=== PATIENT | male | born 1955 | race Caucasian/White ===

== ENCOUNTER 2016-08-09 07:07 | Inpatient (IN) ==
[2016-08-09] MEDS ORDERED: 0.9 % Sodium Chloride 500 ML IVC ONE (07:18)
--- NOTE | 2016-08-09 07:28 | Emergency Department Note ---
Disposition Clinical Impression: Atrial fibrillation with rapid ventricular response, Elevation of cardiac enzymes Disposition: Admitted As Inpatient Time of Disposition: 09:01 Arrhythmia/Palpitations HPI - General Chief Complaint: ED Arrhythmia/Palpitations Stated Complaint: "I believe I'm in A-Fib" Time Seen by Provider: 08/09/16 07:11 Source: patient Limitations: no limitations Nursing Notes Reviewed: Yes Vital Signs Reviewed: Yes - History of Present Illness HPI Narrative: 60-year-old nontoxic-appearing male presents to emergency department for chief complaint of "I think I am in A. fib again". The patient states that at approximately 2000 hours yesterday evening, he noticed a sensation of palpitations and an irregular heart rate upon palpating his own radial artery. The patient states that he was diagnosed with atrial fibrillation approximately 2 years ago and converted while on a Cardizem drip. He states that he was placed on both extended release diltiazem and extended release coreg successfully. He states that to his knowledge, he has not reverted back into an irregular heartbeat since. She denies any overt chest pain, although alludes to a sensation of a brief "tightness" in his chest that is associated with these palpitations. He denies any nausea, diaphoresis, shortness of breath , vomiting, fevers. He states that he is currently being treated with oral doxycycline, prednisone, and a Qvar inhaler for an episode of acute bronchitis that has lasted for "about a month now". He denies any productive cough. He denies any other complaints at this time. Pt Subjective Complaint: palpitations, atrial fibrillation Onset (ago): hour(s) (yesterday evening at approximately 20:00) Duration: constant Arrhythmia History: atrial fibrillation, on anti-coagulants, prior evaluation Associated symptoms: Reports: cough. Denies: chest pain, shortness of breath, near-syncope, nausea, vomiting, diaphoresis Treatments prior to arrival: calcium channel solitario (cardizem) - Related Data Allergies Allergy/AdvReac Type Severity Reaction Status Date / Time No Known Allergies Allergy Verified 08/09/16 07:10 All systems ED: reviewed and negative except as stated. Constitutional: Denies: fever, chills, weakness, weight change Eyes: Denies: eye pain, eye discharge, vision change ENT ED: Denies: ear pain, throat pain, dental pain, hearing loss, epistaxis, congestion, dysphagia Cardiovascular: Reports: as per HPI, palpitations. Denies: chest pain, dyspnea on exertion, orthopnea, edema, syncope, paroxysmal nocturnal dyspnea Respiratory: Reports: as per HPI, cough. Denies: dyspnea, wheezes, hemoptysis, stridor, sputum production Gastrointestinal: Denies: abdominal pain, nausea, vomiting, diarrhea, constipation, hematemesis, melena, hematochezia Musculoskeletal: Denies: back pain, neck pain, arthralgia, myalgia Integumentary: Denies: rash, abrasion, lesions Neurological: Denies: headache, weakness, numbness, paresthesias, confusion, abnormal gait, vertigo Psychiatric: Denies: anxiety, depression, suicidal thoughts, homicidal thoughts , auditory hallucinations, visual hallucinations Endocrine: Denies: fatigue Hematological/Lymphatic: Denies: easy bleeding, easy bruising Allergic/Immunologic: Denies: facial swelling, urticaria Past Medical History - Past Medical History Attestation: Yes The following information was validated with the patient. Source: patient Medical history: Reports: atrial fibrillation, hyperlipidemia, hypertension, kidney stones, myocardial infarction Surgical history: Reports: angioplasty/stent, cholecystectomy Psychiatric history: Reports: no psych history - Social History Smoking Status: Never smoker Alcohol use: Reports: occasionally Drug use: Reports: none Physical Exam - General Limitations: no limitations General appearance: alert, in no apparent distress - Head Head exam: atraumatic, normocephalic, normal inspection - Eye Eye exam: Present: normal appearance, PERRL, EOMI. Absent: nystagmus - Expanded Eye Exam Pupils: Left: reactive - ENT ENT exam: mucous membranes moist - Neck Neck exam: Present: normal inspection, full ROM, trachea midline - Chest Chest inspection: Present: normal inspection, symmetric chest wall rise - Respiratory Respiratory exam: Present: normal lung sounds bilaterally. Absent: respiratory distress, wheezes, stridor, accessory muscle use, prolonged expiratory phase - Cardiovascular Cardiovascular exam: Present: tachycardia, irregular rhythm, normal heart sounds - Abdominal Exam Abdominal exam: Present: soft, Non-Tender, normal bowel sounds. Absent: tenderness, distention, guarding, rebound, rigidity - Extremities Exam Extremities exam: Present: normal inspection, full ROM. Absent: tenderness, pedal edema - Back Exam Back exam: Present: normal inspection, full ROM - Neurological Exam Neurological exam: Present: alert, oriented X3 - Expanded Neurological Exam Patient oriented to: Present: person, place, time Coma Scale Eye Opening: Spontaneous Coma Scale Motor Response: Obeys Commands Coma Scale Verbal Response: Oriented Coma Scale Total: 15 - Psychiatric Psychiatric exam: Present: normal affect, normal mood - Skin Skin exam: Present: warm, dry, intact, normal color. Absent: rash, cyanosis, diaphoresis, erythema, pallor, mottled Course Course Narrative: At this time, laboratory results as well as a chest x-ray are pending. We will start the patient on a Cardizem drip and reevaluate. 0750: I discussed this patient's case with Dr. Gomez. Dr. Gomez had a face-to- face evaluation with the patient and agrees with the above plan. 0850: I spoke with Dr. Mckeon of hospital service. Dr. Mckeon accepts patient for admission. Vital Signs Temperature 97.4 F L 08/09/16 07:08 Pulse Rate 90 08/09/16 07:08 Respiratory Rate 18 08/09/16 07:08 Blood Pressure 134/85 08/09/16 07:08 O2 Sat by Pulse Oximetry 96 08/09/16 07:08 Temperature 97.4 F L 08/09/16 07:08 Pulse Rate 90 08/09/16 09:03 Respiratory Rate 16 08/09/16 09:03 Blood Pressure 110/85 08/09/16 09:03 O2 Sat by Pulse Oximetry 97 08/09/16 09:03 Oxygen Delivery Oxygen Delivery Room Air Arrhythmia/Palpitations - Medical Records Medical records reviewed: Yes I reviewed the patient's medical records. Laboratory Last Values WBC 17.5 K/mcL (4.3-11.1) H 08/09/16 07:27 RBC 7.05 M/mcL (4.19-5.50) H 08/09/16 07:27 Hgb 19.7 g/dL (12.9-16.9) H 08/09/16 07:27 Hct 60.0 % (37.5-50.1) H 08/09/16 07:27 MCV 85.1 fL (83.0-100.0) 08/09/16 07:27 MCH 27.9 pg (28.0-33.3) L 08/09/16 07:27 MCHC 32.8 g/dL (31.6-35.5) 08/09/16 07: RDW 14.4 % (11.5-14.5) 08/09/16 07: Plt Count 242 K/mcL (140-400) 08/09/16 07: MPV 10.9 fL (9.4-12.4) 08/09/16 07: Immature Gran % 1.0 % (0-4) 08/09/16: Seg Neutrophils % 84.2 % 08/09/16 07: Lymphocytes % 9.5 % 08/09/16 07: Monocytes % 4.9 % 08/09/16: Eosinophils % 0.1 % 08/09/16: Basophils % 0.3 % 08/09/16: Neutrophils # 14.8 K/mcL (1.6-8.9) H 08/09/16 07: Lymphocytes # 1.7 K/mcL (0.6-4.6) 08/09/16 07: Monocytes # 0.9 K/mcL (0.0-1.3) 08/09/16 07: Eosinophils # 0.0 K/mcL (0.0-0.6) 08/09/16: Basophils # 0.1 K/mcL (0.0-0.2) 08/09/16 07: PT 11.6 Seconds (9.4-12.1) 08/09/16 08:11 INR 1.1 08/09/16 08:11 APTT 22.9 Seconds (26.0-36.0) L 08/09/16 08:11 Sodium 135 mEq/L (136-145) L 08/09/16 07: Potassium 4.3 mEq/L (3.5-4.5) 08/09/16 07: Chloride 101 mEq/L (98-109) 08/09/16 07: Carbon Dioxide 22 mEq/L (19-29) 08/09/16: BUN 21 mg/dL (8-26) 08/09/16: Creatinine 1.12 mg/dL (0.72-1.25) 08/09/16: Est GFR ( Amer) > 60 (> 60) 08/09/16 07:27 Est GFR (Non-Af Amer) > 60 (> 60) 08/09/16 07:27 BUN/Creatinine Ratio 19 (6-26) 08/09/16 07:27 Glucose 282 mg/dL (70-99) H 08/09/16 07:27 Calculated Osmolality 293 (280-300) 08/09/16 07:27 Calcium 9.5 mg/dL (8.6-10.8) 08/09/16 07:27 Troponin I 0.06 ng/mL (0-0.03) H* 08/09/16 07:27 - Lab Data Lab results reviewed: Yes I reviewed the patient's lab results. Lab results narrative: Laboratory Last Values WBC 17.5 K/mcL (4.3-11.1) H 08/09/16 07:27 RBC 7.05 M/mcL (4.19-5.50) H 08/09/16 07:27 Hgb 19.7 g/dL (12.9-16.9) H 08/09/16 07:27 Hct 60.0 % (37.5-50.1) H 08/09/16 07:27 MCV 85.1 fL (83.0-100.0) 08/09/16 07:27 MCH 27.9 pg (28.0-33.3) L 08/09/16 07:27 MCHC 32.8 g/dL (31.6-35.5) 08/09/16 07:27 RDW 14.4 % (11.5-14.5) 08/09/16 07:27 Plt Count 242 K/mcL (140-400) 08/09/16 07:27 MPV 10.9 fL (9.4-12.4) 08/09/16 07:27 Immature Gran % 1.0 % (0-4) 08/09/16 07:27 Seg Neutrophils % 84.2 % 08/09/16 07:27 Lymphocytes % 9.5 % 08/09/16 07:27 Monocytes % 4.9 % 08/09/16 07:27 Eosinophils % 0.1 % 08/09/16 07:27 Basophils % 0.3 % 08/09/16 07:27 Neutrophils # 14.8 K/mcL (1.6-8.9) H 08/09/16 07:27 Lymphocytes # 1.7 K/mcL (0.6-4.6) 08/09/16 07:27 Monocytes # 0.9 K/mcL (0.0-1.3) 08/09/16 07:27 Eosinophils # 0.0 K/mcL (0.0-0.6) 08/09/16 07:27 Basophils # 0.1 K/mcL (0.0-0.2) 08/09/16 07:27 PT 11.6 Seconds (9.4-12.1) 08/09/16 08:11 INR 1.1 08/09/16 08:11 APTT 22.9 Seconds (26.0-36.0) L 08/09/16 08:11 Sodium 135 mEq/L (136-145) L 08/09/16 07:27 Potassium 4.3 mEq/L (3.5-4.5) 08/09/16 07:27 Chloride 101 mEq/L (98-109) 08/09/16 07:27 Carbon Dioxide 22 mEq/L (19-29) 08/09/16 07:27 BUN 21 mg/dL (8-26) 08/09/16 07:27 Creatinine 1.12 mg/dL (0.72-1.25) 08/09/16 07:27 Est GFR ( Amer) > 60 (> 60) 08/09/16 07:27 Est GFR (Non-Af Amer) > 60 (> 60) 08/09/16 07:27 BUN/Creatinine Ratio 19 (6-26) 08/09/16 07:27 Glucose 282 mg/dL (70-99) H 08/09/16 07:27 Calculated Osmolality 293 (280-300) 08/09/16 07:27 Calcium 9.5 mg/dL (8.6-10.8) 08/09/16 07:27 Troponin I 0.06 ng/mL (0-0.03) H* 08/09/16 07:27 Result diagrams: 08/09/16 07:27 08/09/16 07:27 Lab Results 08/09/16 08/09/16 08/09/16 Range/Units 07:27 07:27 07:27 WBC 17.5 H (4.3-11.1) K/mcL RBC 7.05 H (4.19-5.50) M/mcL Hgb 19.7 H (12.9-16.9) g/dL Hct 60.0 H (37.5-50.1) % MCV 85.1 (83.0-100.0) fL MCH 27.9 L (28.0-33.3) pg MCHC 32.8 (31.6-35.5) g/dL RDW 14.4 (11.5-14.5) % Plt Count 242 (140-400) K/mcL MPV 10.9 (9.4-12.4) fL Immature Gran % 1.0 (0-4) % Seg Neutrophils % 84.2 % Lymphocytes % 9.5 % Monocytes % 4.9 % Eosinophils % 0.1 % Basophils % 0.3 % Neutrophils # 14.8 H (1.6-8.9) K/mcL Lymphocytes # 1.7 (0.6-4.6) K/mcL Monocytes # 0.9 (0.0-1.3) K/mcL Eosinophils # 0.0 (0.0-0.6) K/mcL Basophils # 0.1 (0.0-0.2) K/mcL PT (9.4-12.1) Seconds INR APTT (26.0-36.0) Seconds Sodium 135 L (136-145) mEq/L Potassium 4.3 (3.5-4.5) mEq/L Chloride 101 (98-109) mEq/L Carbon Dioxide 22 (19-29) mEq/L BUN 21 (8-26) mg/dL Creatinine 1.12 (0.72-1.25) mg/dL Est GFR ( Amer) > 60 (> 60) Est GFR (Non-Af Amer) > 60 (> 60) BUN/Creatinine Ratio 19 (6-26) Glucose 282 H (70-99) mg/dL Calculated Osmolality 293 (280-300) Calcium 9.5 (8.6-10.8) mg/dL Troponin I 0.06 H* (0-0.03) ng/mL 08/09/16 Range/Units 08:11 WBC (4.3-11.1) K/mcL RBC (4.19-5.50) M/mcL Hgb (12.9-16.9) g/dL Hct (37.5-50.1) % MCV (83.0-100.0) fL MCH (28.0-33.3) pg MCHC (31.6-35.5) g/dL RDW (11.5-14.5) % Plt Count (140-400) K/mcL MPV (9.4-12.4) fL Immature Gran % (0-4) % Seg Neutrophils % % Lymphocytes % % Monocytes % % Eosinophils % % Basophils % % Neutrophils # (1.6-8.9) K/mcL Lymphocytes # (0.6-4.6) K/mcL Monocytes # (0.0-1.3) K/mcL Eosinophils # (0.0-0.6) K/mcL Basophils # (0.0-0.2) K/mcL PT 11.6 (9.4-12.1) Seconds INR 1.1 APTT 22.9 L (26.0-36.0) Seconds Sodium (136-145) mEq/L Potassium (3.5-4.5) mEq/L Chloride (98-109) mEq/L Carbon Dioxide (19-29) mEq/L BUN (8-26) mg/dL Creatinine (0.72-1.25) mg/dL Est GFR ( Amer) (> 60) Est GFR (Non-Af Amer) (> 60) BUN/Creatinine Ratio (6-26) Glucose (70-99) mg/dL Calculated Osmolality (280-300) Calcium (8.6-10.8) mg/dL Troponin I (0-0.03) ng/mL - Radiology Data Radiology results reviewed: Yes I reviewed the patient's radiology results. Chest X-Ray 08/09/16 07:19 IMPRESSION: No acute cardiopulmonary disease. D/ / 08/09/2016 08:45:00 Jennifer Roland MD / [facility] Interpreting Provider: Jennifer Roland MD - EKG Data EKG attestation: Yes I reviewed and interpreted this EKG. EKG results narrative: EKG reviewed by Dr. Gomez. EKG shows atrial fibrillation with rapid ventricular response at a rate of 150 bpm. No STEMI Rate: tachycardia Rhythm: A.Fib (With rapid ventricular rate) Attestation Statement - Attestation Attestation: For this encounter, I have reviewed the [employer]ER or PA documentation, treatment plan, and medical decision making; and I have had face to face time with this patient. 60-year-old who had a history of A. fib who thinks he is back in A. fib again. Physical examination heart disease or irregularly irregular with a rapid ventricular response. Patient will be started on Cardizem and admitted to the hospital.
[2016-08-09 07:36] LABS: Basophils # 0.1 K/mcL (0.0-0.2); Basophils % 0.3 %; Eosinophils % 0.1 %; Hemoglobin 19.7 g/dL (12.9-16.9); Lymphocytes # 1.7 K/mcL (0.6-4.6); Lymphocytes % 9.5 %; Mean Corpuscular HGB Conc 32.8 g/dL (31.6-35.5); Mean Corpuscular Hemoglobin 27.9 pg (28.0-33.3); Mean Corpuscular Volume 85.1 fL (83.0-100.0); Mean Platelet Volume 10.9 fL (9.4-12.4); Monocytes # 0.9 K/mcL (0.0-1.3); Monocytes % 4.9 %; Neutrophils # 14.8 K/mcL (1.6-8.9); Platelet Count 242 K/mcL (140-400); Red Blood Count 7.05 M/mcL (4.19-5.50); Red Cell Distribution Width 14.4 % (11.5-14.5); Segmented Neutrophils % 84.2 %
[2016-08-09 07:47] LABS: BUN/Creatinine Ratio 19 (6-26); Blood Urea Nitrogen 21 mg/dL (8-26); Calcium 9.5 mg/dL (8.6-10.8); Carbon Dioxide 22 mEq/L (19-29); Chloride 101 mEq/L (98-109); Glucose 282 mg/dL (70-99); Osmolality,Calculated 293 (280-300); Potassium 4.3 mEq/L (3.5-4.5); Sodium 135 mEq/L (136-145); eGFR For African Americans > 60 (> 60); eGFR For Non-African Americans > 60 (> 60)
[2016-08-09 08:21] LABS: INR 1.1; Prothrombin Time 11.6 Seconds (9.4-12.1)
[2016-08-09] MEDS ORDERED: Aspirin 81 MG TAB.CHEW PO ONE (08:21)
[2016-08-09 08:24] LABS: Activated Partial Thrombo Time 22.9 Seconds (26.0-36.0)
[2016-08-09] MEDS ORDERED: 0.9 % Sodium Chloride 500 ML ONE (10:31)
[2016-08-09] MEDS ORDERED: Naloxone 0.4 MG/ML INJ IVP PRN (10:35)
[2016-08-09] MEDS ORDERED: Acetaminophen 325 MG TABLET PO PRN (10:35)
[2016-08-09] MEDS ORDERED: MOM Conc 10 ML UD.LIQ PO PRN (10:35)
[2016-08-09] MEDS ORDERED: Ondansetron 4 MG/2 ML VIAL IVP PRN (10:35)
[2016-08-09] MEDS ORDERED: 0.9 % Sodium Chloride 1,000 ML IVC SCH (10:45)
--- NOTE | 2016-08-09 10:47 | Internal Med History&Physical ---
<Cyndi Corrales - Last Filed: 08/09/16 11:23> Date of Encounter: 08/09/16 Time of Encounter: 09:15 Assessment and Plan (1) Atrial fibrillation with rapid ventricular response Current visit: Yes Status: Acute Pt was playing with his dog last night at about 20:00 and lightly jogged back into his house and felt palpitations and 2/10 intermittent, non-radiating L chest tightness that lasted less than a minute. He denies SOB, n/v, or diaphoresis. He got up early this a.m. still having palpitations and took his Cardizem, hoping to convert, but did not. Initial EKG in ED was a-fib RVR, rate 150. Cardizem bolus and gtt slowed his rate here, however he has not converted. He currently denies feeling palpitations, SOB, or nausea. States that he feels fine and that last time he had this, it took him about 12 hours to convert. Pt admits being complaint to medications, RVR could be secondary to use of inhaler for the past week (pt was prescribed albuterol tid, qvar bid and prednisone for asthma). r/o ACS given briefly CP before palpitations and mildly elevated first troponin at 0.06. Continue Cardizem gtt check echocardiogram Continuous cardiac monitoring, serial troponins and if trending up, will consult cardiology. (2) Elevation of cardiac enzymes Current visit: Yes Status: Acute Initial troponin 0.06 at 0730. Denies cp, pressure, SOB. Plan as above Serial troponins (3) Hyperlipemia Current visit: Yes Status: Acute Lipid panel done in 06/19, all wnl. Continue home medication. Qualifiers: Hyperlipidemia type: unspecified Qualified Code(s): E78.5 - Hyperlipidemia , unspecified (4) Asthma Current visit: Yes Status: Acute Pt has been being treated for cough, congestion, and wheezing for the last month. He is currently taking doxycycline and has been on it for the last 6 days with no missed doses. He is also taking a taped dose of prednisone, Qvar inhaler, and using an albuterol inhaler about 4x/day. His chest xray is negative for any cardiopulmonary disease. He states that he gets something like this at least once a year and knows that he need steroids to get over it. His lungs are clear ant and post and his room air sat was 97% Xopenex nebulizers prn Continue prednisone taper Qualifiers: Asthma severity: mild intermittent Asthma complication type: with acute exacerbation Qualified Code(s): J45.21 - Mild intermittent asthma with (acute ) exacerbation Internal Medicine - H&P: HPI Chief complaint: A-fib Admitted From: Home Plans for Post Hospital Care: Home History of present illness: Mr. Blackmon is a 60 year old male with prior history of a-fib, asthma, and hyperlipidemia who presented to the ER last night feeling as if he was in a-fib again. Pt had been playing with his dog and lightly jogged back to the house when he first noticed it. He also had 2/10 intermittent mid-sternal, non- radiating chest tightness that lasted less than a minute. He denies any SOB, n/v , or diaphoresis. He woke up early this a.m and took his Diltiazem, hoping that he would convert. When he didn't he went to the ED. His initial EKG showed a- fib RVR with a rate of 150. Pt is currently on a Cardizem gtt which has slowed his rate into the 80s, however he has not converted. His vitals have remained stable, during exam heart rate 77 and BP 102/70. He is also being treated with Qvar, Prednisone, Albuterol, and Doxycycline for an acute asthma exacerbation that began about a month ago. Pt states that he is feeling better, but is still using his albuterol inhaler "no more than 4 times per day". He denies fever or productive cough, but reports intermittent wheezing and rhinorrhea. Past Med Surg Social Fam HX - Past Medical History Medical history: atrial fibrillation, cancer (Malignant melanoma 2014), hyperlipidemia, hypertension, kidney stones, myocardial infarction Psychiatric history: no psych history - Past Surgical History Surgical History: angioplasty/stent, cholecystectomy - Social History Smoking Status: Never smoker Alcohol use: occasionally Drug use: none Internal Medicine - H&P: Meds Albuterol Sulfate [Albuterol Inhaler] 2 puff IH Q4HR PRN 08/09/16 [History] Aspirin [Lo-Dose Aspirin EC] 81 mg PO DAILY 08/09/16 [History] Atorvastatin Calcium [Lipitor] 20 mg PO DAILY 08/09/16 [History] Beclomethasone Diprop 80mcg [Qvar 80 mcg] 1 puff IH BID 08/09/16 [History] Carvedilol Phosphate [Coreg Cr] 10 mg PO DAILY 08/09/16 [History] Clopidogrel [Plavix] 75 mg PO DAILY 08/09/16 [History] Diltiazem CD (24hr) [Cardizem CD] 120 mg PO DAILY 08/09/16 [History] Doxycycline 100 mg PO BID 08/09/16 [History] Fish Oil/Borage/Flax/Om3,6,9#1 [[place]wood 3-6-9 1,200 mg Softgel] 1,200 mg PO DAILY 08/09/16 [History] Lisinopril [Zestril] 2.5 mg PO DAILY 08/09/16 [History] PredniSONE 10 mg PO DAILY 08/09/16 [History] Allergies No Known Allergies Allergy (Verified 08/09/16 07:10) All Systems PM: A 10-system review of systems was performed and is negative for pertinent findings except as documented above in the HPI. - Constitutional Vitals: Temp Pulse Resp BP Pulse Ox 97.4 F L 90 16 110/85 97 08/09/16 07:08 08/09/16 09:03 08/09/16 09:03 08/09/16 09:03 08/09/16 09:03 Internal Med - H&P Results - Labs CBC & Chem 7: 08/09/16 07:27 08/09/16 07:27 - EKG Data Rate: normal - EKG Data EKG comments: 08/09/16 10:51 A-fib RVR , rate 150 <Cindy Ralph E - Last Filed: 08/09/16 13:21> Date of Encounter: 08/09/16 Internal Medicine - H&P: HPI History of present illness: Mr. Blackmon is a 60 year old male All Systems PM: A 10-system review of systems was performed and is negative for pertinent findings except as documented above in the HPI. - Constitutional Vitals: Temp Pulse Resp BP Pulse Ox 98.1 F 73 16 112/82 97 08/09/16 11:29 08/09/16 11:29 08/09/16 11:57 08/09/16 11:29 08/09/16 11:57 Internal Med - H&P Results - Labs CBC & Chem 7: 08/09/16 07:27 08/09/16 07:27 - Attending Attestation I examined this patient and reviewed laboratory, imaging and all diagnostic data. My medical decision-making was reviewed with SG Corrales. I agree with the documented findings, disposition and treatment plan as described above. 60- year-old male with past medical history of atrial fibrillation and takes diltiazem and coreg at home. He presents after developing palpitations yesterday night. Patient reports for the past week he has been using albuterol tid for an episode of asthma exacerbation. EKG show atrial fibrillation with rapid ventricular response heart rate 150. Patient received IV bolus Cardizem and then was placed in continuous Cardizem drip. His thyroid is currently in the 70s. He is asymptomatic. Examination shows no LEedema, chest CTAB and heart irregular rhythm. troponin was 0.06. CXR showed no acute process. a/p Atrial fibrillation with rapid ventricular response. Continue Cardizem drip. Continue home dose of Coreg. RVR could be secondary to his recent use of albuterol versus ACS given mild elevation of troponin. Follow-up serial troponins and if keeps trending up I will consult cardiology. Check echocardiogram. asthma. xopenex q6hr.
[2016-08-09] MEDS: Levalbuterol Neb 0.63 MG/3 ML IH SCH ×3 (11:56→21:23)
--- NOTE | 2016-08-09 15:00 | ECHO - Doppler Report ---
Echocardiogram Name: Darrell Blackmon Date of Study: 08/09/2016 Date: 1955 Ht: 68.0 in Medical Record#: [id number] Age: 60 Wt: 208.0 lb Gender: Male BSA: 2.08 Order #: [id number] Location: [facility] Room #: [id number] Reading Physician: Gustavo Landis DO, FACC, HALIE, WOLFGANG Inside Sales: Maggie Llanes, RVT, RDCS Ordering Physician: Cyndi Corrales CNP Primary Physician: Jo Scherer CNP Indications: ATRIAL FIBRILLATION Impressions: Technically sub-optimal due to poor echocardiographic windows. LVEF 55-60%. Normal LV chamber size. Not all LV segments were well visualized, but overall function appears normal. Mild concentric left ventricular hypertrophy. Indeterminate diastolic function. Atypical septal motion consistent with bundle branch block. Normal right ventricular structure and function. No evidence of pulmonary hypertension identified. RVSP was not well obtained. No obvious significant valvular dysfunction. Findings: Study Quality * Technically sub-optimal due to poor echocardiographic windows. ECG Findings * Atrial fibrillation with a bundle branch block. Left Ventricle * LVEF 55-60%. * Normal LV chamber size. Not all LV segments were well visualized, but overall function appears normal. * Mild concentric left ventricular hypertrophy. * Atypical septal motion consistent with bundle branch block. * Indeterminate diastolic function. Right Ventricle * Normal right ventricular structure and function. Left Atrium * Mildly dilated left atrium. Right Atrium * Normal right atrial size. Interatrial Septum * Interatrial septum not well evaluated. Aortic Valve * Aortic valve not well visualized. * No aortic regurgitation. * No aortic stenosis. Mitral Valve * Normal mitral valve structure and function. * No mitral regurgitation. * No mitral stenosis. Tricuspid Valve * Normal tricuspid valve structure and function. * Trace tricuspid regurgitation. * No evidence of pulmonary hypertension identified. RVSP was not well obtained. Pulmonic Valve * Pulmonic valve not well visualized. Aorta * Normally sized aortic root. Pericardium * The pericardium appears normal. IVC * The IVC is not well evaluated. Pulmonary Artery * Pulmonary artery not well visualized. History Hypertension Hypercholesteremia Family History of CAD History of CAD/PTCA Myocardial Infarction 2015 a Previous Echo was performed. Measurements: BP: 112/ 82 2D Normal Values IVSd: 1.20 cm 0.6 - 1.0 cm LVIDd: 4.10 cm 3.7 - 5.6 cm LVPWd: 1.20 cm 0.6 - 1.1 cm LVIDs: 2.20 cm 1.5 - 3.6 cm AO: 2.70 cm < 4.0 cm LA: 3.40 cm 2.0 - 4.0cm %FS: 46.30 cm >25 % LA volume: 35 Mitral Valve Peak E:.96 m/sec Tricuspid Valve TV Regurg Peak Grad: 11.00mmHg TV Regurg Peak Tanmay: 1.68m/sec Updated by Gustavo Landis DO, DONNA, HALIE, WOLFGANG on 08/09/2016 2:56:17 PM electronically signed on 08/09/2016 2:56:54 PM with status of [employer] [place]: 1=Normal, 2=Hypokinesis, 3=Akinesis, 4=Dyskinesis, 5=Aneurysmal, 6=Hyperkinetic, X=Not Visualized (Blank)=Missing
[2016-08-10 01:02] LABS: Basophils % 0.3 %; Eosinophils # 0.1 K/mcL (0.0-0.6); Eosinophils % 0.4 %; Hematocrit 52.6 % (37.5-50.1); Immature Granulocytes % 0.6 % (0-4); Immature Platelets 5.2 % (1.1-6.1); Lymphocytes % 14.2 %; Mean Corpuscular HGB Conc 33.3 g/dL (31.6-35.5); Mean Corpuscular Hemoglobin 28.2 pg (28.0-33.3); Mean Corpuscular Volume 84.8 fL (83.0-100.0); Mean Platelet Volume 10.8 fL (9.4-12.4); Monocytes # 1.1 K/mcL (0.0-1.3); Neutrophils # 10.8 K/mcL (1.6-8.9); Platelet Count 191 K/mcL (140-400); Red Cell Distribution Width 13.3 % (11.5-14.5); Segmented Neutrophils % 76.5 %
[2016-08-10 01:05] LABS: Hemoglobin 17.5 g/dL (12.9-16.9)
[2016-08-10 01:12] LABS: BUN/Creatinine Ratio 23 (6-26); Blood Urea Nitrogen 23 mg/dL (8-26); Calcium 8.3 mg/dL (8.6-10.8); Carbon Dioxide 23 mEq/L (19-29); Chloride 103 mEq/L (98-109); Glucose 202 mg/dL (70-99); Osmolality,Calculated 289 (280-300); Potassium 4.1 mEq/L (3.5-4.5); Sodium 135 mEq/L (136-145); eGFR For African Americans > 60 (> 60); eGFR For Non-African Americans > 60 (> 60)
[2016-08-10 01:35] LABS: Thyroid Stimulating Hormone 0.483 mcIU/mL (0.350-4.840)
[2016-08-10] MEDS: Levalbuterol Neb 0.63 MG/3 ML IH SCH ×4 (04:31→21:39)
--- NOTE | 2016-08-10 07:28 | Internal Med Progress Note ---
Date of Encounter: 08/10/16 Time of Encounter: 07:25 - Assessment and plan (1) Atrial fibrillation with rapid ventricular response Current Visit: Yes Status: Acute Assessment and plan: Admitted with Afib with RVR: - was on cardizem drip and noted that presently his HR is 90-96/m with Blood pressure 111/87. - Had ongoing respiratory tract infection and was on Oral doxy and PO pred ( 10 mg) and Albuterol inhalers. - ongoing respiratory symptoms for more than 4 weeks. - denies fever, chest pain, nausea or vomiting. - noted Elevated WBC ( trending down) with normal renal function. plan: - Oral cardizem 120 mg SR and taper cardizem drip - Need snf A/C as his [id number] score is 2. may get benefit from NOAC. - will ask social media strategist to find a cost ( insurance) - will treat underlying lung issue more aggressively as that can be precipitating factor for Afib. - will start IV steroids( Solumedrol 40 mg q8h), IV antibiotics ( IV Zosyn 3.375 q8H) and continue Zoponex. - case discussed with Dr steel (cardilogy) - updated family all above. (2) Elevation of cardiac enzymes Current Visit: Yes Status: Acute Assessment and plan: likely demand ischimia from RVR (3) Asthma Current Visit: Yes Status: Acute Assessment and plan: will treat more aggressively Qualifiers: Asthma severity: mild intermittent Asthma complication type: with acute exacerbation Qualified Code(s): J45.21 - Mild intermittent asthma with (acute ) exacerbation - Subjective Interval history: seen and examined. admitted with Afib along with RVR still has cough and occasional SOB denies chest pain, nausea, vomiting or diarrhea. - Constitutional Vitals: Temp Pulse Resp BP Pulse Ox 98.2 F 85 16 111/87 94 L 08/10/16 05:00 08/10/16 05:00 08/10/16 05:00 08/10/16 05:00 08/10/16 05:00 - Head Head exam: Present: atraumatic, normocephalic - Eye Eye exam: Present: PERRL, conjuntiva pink, sclera anicteric Pupils: Present: PERRL - Neck Neck exam general surgery: Present: supple, trachea midline. Absent: lymphadenopathy - Respiratory Respiratory exam: Present: CTAB. Absent: accessory muscle use, rales, rhonchi, wheezes - Cardiovascular Cardiovascular exam: Present: RRR, +S1, +S2. Absent: diastolic murmur, gallop, rubs, systolic murmur - GI/Abdominal GI/Abdominal exam: Present: normal bowel sounds, soft, no peritoneal signs. Absent: distended, tenderness - Extremities Exam Extremities exam: Present: warm, radial pulses palpable and symetrical. Absent : calf tenderness, cyanotic, pedal edema - Neurological Exam Neurological exam: Present: CN II-XII intact, oriented X3, no focal deficits. Absent: pronater drift, facial droop, speech deficit - Skin Skin exam: Present: dry, intact Internal Medicine: Result - Labs CBC & Chem 7: 08/10/16 00:42 08/10/16 00:48 Labs: Short CBC 08/10/16 Range/Units 00:42 WBC 14.1 H (4.3-11.1) K/mcL Hgb 17.5 H D (12.9-16.9) g/dL Hct 52.6 H (37.5-50.1) % Plt Count 191 (140-400) K/mcL Neutrophils # 10.8 H (1.6-8.9) K/mcL BMP 08/10/16 00:48 Sodium 135 L Potassium 4.1 Chloride 103 Carbon Dioxide 23 BUN 23 Creatinine 0.98 Glucose 202 H Calcium 8.3 L Cardiac Enzymes 08/09/16 08/10/16 Range/Units 19:21 00:48 Troponin I 0.06 H* 0.05 H* (0-0.03) ng/mL - ABG Interpretation ABG results: PT/INR, D-dimer PT 11.6 Seconds (9.4-12.1) 08/09/16 08:11 Consult Discharge Plan - Plan Referrals: Jo Scherer, PUBLIC POLICY ANALYST [Primary Care Provider] -
[2016-08-10] MEDS ORDERED: Piperacillin/Tazobactam 3.375 GM in D5% in Water (Mini-Bag+) 100 ML IVPB SCH (08:00)
--- NOTE | 2016-08-10 08:24 | Cardiology Consult Note ---
Date of Encounter: 08/10/16 Time of Encounter: 08:30 Assessment and Plan (1) Atrial fibrillation with rapid ventricular response Current Visit: Yes Status: Acute Per Cardiology: Previous one time occurrence paroxysmal atrial fibrillation about 2 years ago. Previous management with Cardizem CD 120 mg by mouth daily and taking baby aspirin. Presents with recurrent A. fib with RVR in setting of persistent cough and asthma exacerbation. Suspect also contributing factor increased albuterol usage. Remains A. fib with heart rate fluctuating 90s to 130s. On Cardizem drip at 5 mg per hour. Currently on Cardizem CD 120 mg and Coreg 3.125 mg by mouth twice a day. Systolic blood pressure 90s to 110s. Will discontinue lisinopril. We'll switch to Cardizem 60 mg by mouth every 6 hours and titrate as blood pressure allows. Will attempt to wean off IV Cardizem drip. TSH within normal limits. Echo showed EF preserved 55-60%, no significant valvular dysfunction. Suspect may be difficult to rate control and to underlying resp status improved. Also albuterol nebulizers and now on Xopenex. Regarding long-term anticoagulation, [id number] = 2 (HTN, Vascular). Has been started on Xarelto 20 mg by mouth daily by primary service. Will discontinue Plavix-- last stenting in 2006. Remains on baby aspirin. (2) Asthma Current Visit: Yes Status: Acute Per Cardiology: Pt had been being treated for cough, congestion, and wheezing for the last month. He was currently taking doxycycline and has been on it for the last 6 days with no missed doses. He was also taking a taped dose of prednisone, Qvar inhaler, and was using an albuterol inhaler about 4x/day. Now on steroids, Xopenex, and antibiotics. Management per primary service. Qualifiers: Asthma severity: mild intermittent Asthma complication type: with acute exacerbation Qualified Code(s): J45.21 - Mild intermittent asthma with (acute ) exacerbation (3) Elevation of cardiac enzymes Current Visit: Yes Status: Acute Per Cardiology: Trops 0.06 x 3 and then 0.05. Denies any CP. Hx CAD with 3 BMS 2006 at [facility]. Suspect type II demand ischemia in setting of afib RVR, ashtma/URI. Echo showed EF preserved 55-60%. Can evaluate further ischemic eval if deemed appropriate in outpatient setting once improved from acute resp issues. Discussion w patient/family: The assessment and plan as outlined above was discussed with the patient who expressed understanding and agreement. All questions were answered. Thank you for involving us in the care of your patient. Please call with any questions. History of Present Illness Consult date: 08/10/16 Requesting physician: Kaleb Peralta Consult reason: Afib with RVR Chief complaint: Afib RVR History of present illness: Mr. Blackmon is a 60 year old male with a relevant past medical history of hypertension, hyperlipidemia, asthma, paroxysmal atrial fibrillation, and CAD. Patient reports previous stents 3 (BMS) 2006 at [facility]. Reports past history of one time occurrence of atrial fibrillation about 2 years ago being managed with Cardizem CD 120 mg by mouth daily and on baby aspirin. Last seen by Dr. Mark Nichole June 2016. Reports past 3-4 weeks experiencing persistent mainly nonproductive cough with asthma exacerbation. He reports a few occasions reducing clear to whitish colored phlegm. Denies any fever, chills, nausea, vomiting, diarrhea. Reports he notices heart rate irregular and running fast this past Wednesday and did not resolve so he came to the hospital on Wednesday. Denies any active bleeding or blood loss. Denies any syncopal events or falls. He denies any chest pain. He denies any known history of sleep apnea, does report snoring. Past Med Surg Social Fam HX - Past Medical History Attestation: Yes The following information was validated with the patient. Source: patient, old records reviewed Medical history: atrial fibrillation, cancer, hyperlipidemia, hypertension, kidney stones, myocardial infarction Psychiatric history: no psych history - Past Surgical History Surgical History: angioplasty/stent, cholecystectomy - Social History Smoking Status: Never smoker Alcohol use: occasionally Drug use: none - Family History Father Living Status: Still Living Age at : 80 Hx Family Cardiac Disorders: Yes (ACS, CABG) Medications and Allergies Albuterol Sulfate [Albuterol Inhaler] 2 puff IH Q4HR PRN 08/09/16 [History] Aspirin [Lo-Dose Aspirin EC] 81 mg PO DAILY 08/09/16 [History] Atorvastatin Calcium [Lipitor] 20 mg PO DAILY 08/09/16 [History] Beclomethasone Diprop 80mcg [Qvar 80 mcg] 1 puff IH BID 08/09/16 [History] Carvedilol Phosphate [Coreg Cr] 10 mg PO DAILY 08/09/16 [History] Clopidogrel [Plavix] 75 mg PO DAILY 08/09/16 [History] Diltiazem CD (24hr) [Cardizem CD] 120 mg PO DAILY 08/09/16 [History] Doxycycline 100 mg PO BID 08/09/16 [History] Fish Oil/Borage/Flax/Om3,6,9#1 [[place] 3-6-9 1,200 mg Softgel] 1,200 mg PO DAILY 08/09/16 [History] Lisinopril [Zestril] 2.5 mg PO DAILY 08/09/16 [History] PredniSONE 10 mg PO DAILY 08/09/16 [History] Allergies No Known Allergies Allergy (Verified 08/09/16 07:10) All Systems Review: A 10-system review of systems was performed and is negative for pertinent findings except as documented above in the HPI. - Constitutional Constitutional: snoring - Cardiovascular Cardiovascular: as per HPI, irregular heart rhythm, palpitations, rapid heart rate - Respiratory Respiratory: cough Physical Examination Vital Signs, Last 4 Hours Temp Pulse Resp BP Pulse Ox 08/10/16 07:00 97.4 F L 83 16 112/85 97 08/10/16 05:00 98.2 F 85 16 111/87 94 L 08/10/16 04:31 16 98 General: Conversant, No Apparent Distress HEENT: Atraumatic, Normocephaly, Mucus Membranes Moist Neck: No JVD, Normal carotid pulses Cardiac: No Murmur, Other (Irregular irregular) Lungs: Normal Breath Sounds, No Wheeze, Rales, Rhonchi, Other (Dry nonproductive cough noted) Neuro: Alert and responsive, No focal deficits noted Abdomen: Soft, Non-Tender Skin: No rashes noted on visualized skin Musculoskeletal: No Chest Wall Tenderness Extremities: No Edema, Normal Pulses Results 08/10/16 00:42 08/10/16 00:48 Lab Results Laboratory Tests 08/09/16 08/09/16 08/09/16 07:27 07:27 08:11 WBC 17.5 H INR 1.1 Troponin I 0.06 H* TSH 08/09/16 08/09/16 08/10/16 13:42 19:21 00:42 WBC 14.1 H INR Troponin I 0.06 H* 0.06 H* TSH 08/10/16 08/10/16 00:48 00:48 WBC INR Troponin I 0.05 H* TSH 0.483 ITS Impressions Chest X-Ray 08/09/16 07:19 IMPRESSION: No acute cardiopulmonary disease. D/ / 08/09/2016 08:45:00 Jennifer Roland MD / [facility] Interpreting Provider: Jennifer Roland MD Active Medications Acetaminophen (Tylenol) 650 mg PO Q6HR PRN PRN Reason: Mild Pain (1-3) Stop: 02/08/17 10:36 Aspirin (Aspirin Ec) 81 mg PO DAILY [facility] Stop: 02/09/17 09:01 Atorvastatin Calcium (Lipitor) 20 mg PO DAILY [facility] Stop: 02/09/17 09:01 Carvedilol (Coreg) 3.125 mg PO BID [facility] Stop: 02/09/17 09:01 Clopidogrel Bisulfate (Plavix) 75 mg PO DAILY [facility] Stop: 02/09/17 09:01 Diltiazem HCl (Cardizem Cd) 120 mg PO DAILY [facility] Stop: 02/09/17 09:01 Docusate Sodium (Colace) 100 mg PO BID PRN PRN Reason: Constipation Stop: 02/08/17 10:36 Diltiazem HCl 125 mg/ Dextrose 125 mls @ 5 mls/hr IVC .Q24H [facility] PRN Reason: 5 MG/HR Stop: 02/08/17 07:31 Last Admin: 08/10/16 01:10 Dose: 5 mg/hr, 5 mls/hr Sodium Chloride (0.9 % Sodium Chloride) 1,000 mls @ 0 mls/hr IVC .Q0M [facility] PRN Reason: KVO Stop: 02/08/17 10:46 Last Admin: 08/09/16 22:48 Dose: 20 mls/hr Piperacillin Sod/Tazobactam (Sod 3.375 gm/ Dextrose) 100 mls @ 25 mls/hr IVPB Q8HR [facility] PRN Reason: Protocol Stop: 02/09/17 08:01 Levalbuterol HCl (Xopenex) 0.63 mg IH [id number] [facility] Stop: 02/08/17 11:46 Last Admin: 08/10/16 04:31 Dose: 0.63 mg Lisinopril (Zestril) 2.5 mg PO DAILY [facility]A PRN Reason: Protocol Stop: 02/09/17 09:01 Magnesium Hydroxide (Milk Of Magnesia Conc) 10 ml PO DAILY PRN PRN Reason: Indigestion Stop: 02/08/17 10:36 Methylprednisolone (Solu-Medrol) 40 mg IVP Q8HR [facility] Stop: 02/09/17 08:01 Naloxone HCl (Narcan) 0.4 mg IVP Q2MIN PRN PRN Reason: Opioid Reversal Stop: 02/08/17 10:36 Ondansetron HCl (Zofran) 4 mg IVP Q8HR PRN PRN Reason: Nausea And Vomiting Stop: 02/08/17 10:36 Rivaroxaban (Xarelto) 20 mg PO 1700 [facility] Stop: 02/09/17 17:01 - Imaging and Cardiology Echo: report reviewed - EKG Interpretation EKG results cardiology: personally reviewed (Vickie walker with RVR with heart rate in the 150s), other (24 hour telemetry with average heart rate 87, Vickie walker) Consult Discharge Plan - Plan Referrals: Jo Scherer, MARKET DEVELOPMENT DIRECTOR [Primary Care Provider] -
[2016-08-10] MEDS ORDERED: FISH OIL PO SCH (09:00)
[2016-08-10] MEDS ORDERED: FLAX PO SCH (09:00)
[2016-08-10] MEDS ORDERED: predniSONE 10 MG TABLET PO SCH (09:00)
[2016-08-10] MEDS ORDERED: [UNRECOGNIZED DRUG - OTHER] PO SCH (09:00)
[2016-08-10] MEDS ORDERED: Diltiazem CD (24hr) 120 MG CAPSULE PO SCH (09:00)
[2016-08-10] MEDS ORDERED: BORAGE PO SCH (09:00)
[2016-08-10] MEDS: Aspirin Enteric Coated 81 MG Tablet PO SCH (09:14)
[2016-08-10] MEDS: MethylPREDNISolone 40 MG/ML VIAL IVP SCH ×3 (09:15→23:50)
[2016-08-10] MEDS: dilTIAZem HCl 60 MG TABLET PO SCH ×3 (11:59→21:18)
[2016-08-10] MEDS ORDERED: GuaiFENesin Liq 200 MG/10 ML UDC PO PRN (13:25)
[2016-08-10] MEDS: Piperacillin/Tazobactam 3.375 GM in D5% in Water (Mini-Bag+) 100 ML IVPB SCH ×2 (13:27→21:18)
--- NOTE | 2016-08-10 17:32 | Electrocardiograph Report ---
[address] [place] [address] Test Date: 2016-08-09 Pat Name: Darrell Blackmon Department: 105 Room: E21 Gender: M Division Manager: : 1955 Requested By: Santo Hampton Order Number: [id number] Reading MD: Renate Villarreal Measurements Intervals [place] Rate: 150 P: [place]: 0 QRS: 48 QRSD: 82 T: 88 QT: 262 QTc: 347 Interpretive Statements ATRIAL FIBRILLATION WITH RAPID VENTRICULAR RESPONSE ANTEROSEPTAL MYOCARDIAL INFARCTION OF INDETERMINATE AGE Electronically Signed On 08-10-2016 17:30:36 EST by Renate Villarreal
[2016-08-10] MEDS: *HR* Rivaroxaban 10 MG TABLET PO SCH (17:48)
[2016-08-10] MEDS ORDERED: *HR* Metoprolol 5 MG/5 ML VIAL IVP PRN (21:47)
[2016-08-11] MEDS: Levalbuterol Neb 0.63 MG/3 ML IH SCH ×4 (04:08→22:31)
[2016-08-11] MEDS: Piperacillin/Tazobactam 3.375 GM in D5% in Water (Mini-Bag+) 100 ML IVPB SCH ×3 (05:44→20:44)
[2016-08-11 05:50] LABS: Basophils % 0.1 %; Hemoglobin 18.3 g/dL (12.9-16.9); Lymphocytes # 0.8 K/mcL (0.6-4.6); Lymphocytes % 3.9 %; Mean Corpuscular HGB Conc 33.9 g/dL (31.6-35.5); Mean Corpuscular Hemoglobin 28.5 pg (28.0-33.3); Mean Corpuscular Volume 84.1 fL (83.0-100.0); Mean Platelet Volume 10.8 fL (9.4-12.4); Monocytes # 0.3 K/mcL (0.0-1.3); Monocytes % 1.4 %; Neutrophils # 18.2 K/mcL (1.6-8.9); Platelet Count 198 K/mcL (140-400); Red Blood Count 6.42 M/mcL (4.19-5.50); Red Cell Distribution Width 13.5 % (11.5-14.5); Segmented Neutrophils % 93.6 %
[2016-08-11 06:06] LABS: Alanine Aminotransferase 36 Units/L (0-55); Albumin 2.9 g/dL (3.5-5.0); Alkaline Phosphatase 93 Units/L (38-126); Aspartate Amino Transferase 11 Units/L (5-34); BUN/Creatinine Ratio 26 (6-26); Bilirubin,Total 1.1 mg/dL (0.2-1.2); Blood Urea Nitrogen 25 mg/dL (8-26); Calcium 8.9 mg/dL (8.6-10.8); Carbon Dioxide 20 mEq/L (19-29); Chloride 105 mEq/L (98-109); Globulin 2.9 g/dL (2.4-3.5); Glucose 222 mg/dL (70-99); Magnesium 1.7 mg/dL (1.6-2.6); Osmolality,Calculated 291 (280-300); Phosphorous 3.7 mg/dL (2.3-4.7); Potassium 4.5 mEq/L (3.5-4.5); Sodium 135 mEq/L (136-145); Total Protein 5.8 g/dL (6.0-8.3); eGFR For African Americans > 60 (> 60); eGFR For Non-African Americans > 60 (> 60)
--- NOTE | 2016-08-11 08:00 | Cardiology Progress Note ---
Date of Encounter: 08/11/16 Time of Encounter: 08:00 Assessment and Plan (1) Atrial fibrillation with rapid ventricular response Current Visit: Yes Status: Acute Per Cardiology: Previous one time occurrence paroxysmal atrial fibrillation about 2 years ago. Previous management with Cardizem CD 120 mg by mouth daily, Coreg CR 10mg PO daily, and baby aspirin. Presents with recurrent A. fib with RVR in setting of persistent cough (URI?) and asthma exacerbation. Suspect also contributing factor increased albuterol usage. Remains A. fib with heart rate fluctuating 90's - 120's. SBP 100's - 120' s. Off Cardizem drip. Currently on Coreg 3.125 mg and Cardizem 60 mg by mouth every 6 hours-- will increase to 90mg Q6hrs and titrate as blood pressure allows. TSH within normal limits. Echo showed EF preserved 55-60%, no significant valvular dysfunction. Suspect may be difficult to rate control and to underlying resp status improved. Off albuterol nebulizers and now on Xopenex. Regarding long-term anticoagulation, [id number] = 2 (HTN, Vascular). Now on Xarelto 20 mg by mouth daily by primary service. Remains on baby aspirin, now off Plavix. (2) Asthma Current Visit: Yes Status: Acute Per Cardiology: Suspect URI/Asthma. Pt had been being treated for cough, congestion, and wheezing for the last month. He was currently taking doxycycline and has been on it for the last 6 days with no missed doses. He was also taking a taped dose of prednisone, Qvar inhaler, and was using an albuterol inhaler about 4x/day. Now on steroids, Xopenex, and antibiotics. Management per primary service. Qualifiers: Asthma severity: mild intermittent Asthma complication type: with acute exacerbation Qualified Code(s): J45.21 - Mild intermittent asthma with (acute ) exacerbation (3) Elevation of cardiac enzymes Current Visit: Yes Status: Acute Per Cardiology: Trops 0.06 x 3 and then 0.05. Denies any CP. Hx CAD with 3 BMS 2006 at [facility]. Suspect type II demand ischemia in setting of afib RVR, ashtma/URI. Echo showed EF preserved 55-60%. Can evaluate further ischemic eval if deemed appropriate in outpatient setting once improved from acute resp issues. Discussion w patient/family: The assessment and plan as outlined above was discussed with the patient who expressed understanding and agreement. All questions were answered. Thank you for involving us in the care of your patient. Please call with any questions. Subjective Principal diagnosis: Afib RVR Interval history: Patient reports episodes of racing heart rate throughout the night and chest tightness. He reports cough somewhat improved. Denies any new concerns or complaints. Denies any active bleeding or blood loss. Objective Vital Signs, Last 4 Hours Temp Pulse Resp BP Pulse Ox 08/11/16 04:08 16 97 08/11/16 04:00 97.9 F 119 18 123/84 95 General: Conversant, No Apparent Distress HEENT: Atraumatic, Normocephaly Cardiac: No Murmur, Other (Irregular irregular) Lungs: Normal Breath Sounds, No Wheeze, Rales, Rhonchi Neuro: Alert and responsive, No focal deficits noted Skin: No rashes noted on visualized skin Extremities: No Edema Results 08/11/16 05:32 08/11/16 05:32 Lab Results Laboratory Tests 08/11/16 05:32 WBC 19.4 H ITS Impressions Chest X-Ray 08/09/16 07:19 IMPRESSION: No acute cardiopulmonary disease. D/ / 08/09/2016 08:45:00 Jennifer Roland MD / [facility] Interpreting Provider: Jennifer Roland MD Active Medications Acetaminophen (Tylenol) 650 mg PO Q6HR PRN PRN Reason: Mild Pain (1-3) Stop: 02/08/17 10:36 Aspirin (Aspirin Ec) 81 mg PO DAILY [facility] Stop: 02/09/17 09:01 Last Admin: 08/10/16 09:14 Dose: 81 mg Atorvastatin Calcium (Lipitor) 20 mg PO DAILY [facility] Stop: 02/09/17 09:01 Last Admin: 08/10/16 09:14 Dose: 20 mg Carvedilol (Coreg) 3.125 mg PO BIDWM [facility] Stop: 02/09/17 09:01 Last Admin: 08/10/16 17:48 Dose: 3.125 mg Diltiazem HCl (Cardizem) 60 mg PO QID [facility] Stop: 02/09/17 13:01 Last Admin: 08/10/16 21:18 Dose: 60 mg Docusate Sodium (Colace) 100 mg PO BID PRN PRN Reason: Constipation Stop: 02/08/17 10:36 Guaifenesin (Robitussin Liq) 200 mg PO Q6HR PRN PRN Reason: Cough Stop: 02/09/17 13:26 Sodium Chloride (0.9 % Sodium Chloride) 1,000 mls @ 0 mls/hr IVC .Q0M [facility] PRN Reason: KVO Stop: 02/08/17 10:46 Last Admin: 08/09/16 22:48 Dose: 20 mls/hr Piperacillin Sod/Tazobactam (Sod 3.375 gm/ Dextrose) 100 mls @ 25 mls/hr IVPB Q8H [facility] PRN Reason: Protocol Stop: 02/09/17 13:01 Last Admin: 08/11/16 05:44 Dose: 25 mls/hr Levalbuterol HCl (Xopenex) 0.63 mg IH [id number] [facility] Stop: 02/08/17 11:46 Last Admin: 08/11/16 04:08 Dose: 0.63 mg Magnesium Hydroxide (Milk Of Magnesia Conc) 10 ml PO DAILY PRN PRN Reason: Indigestion Stop: 02/08/17 10:36 Methylprednisolone (Solu-Medrol) 40 mg IVP Q8HR [facility] Stop: 02/09/17 08:01 Last Admin: 08/10/16 23:50 Dose: 40 mg Metoprolol Tartrate (Lopressor) 5 mg IVP Q6HR PRN PRN Reason: Tachyarrhythmias Stop: 02/09/17 21:48 Last Admin: 08/10/16 22:07 Dose: 5 mg Naloxone HCl (Narcan) 0.4 mg IVP Q2MIN PRN PRN Reason: Opioid Reversal Stop: 02/08/17 10:36 Ondansetron HCl (Zofran) 4 mg IVP Q8HR PRN PRN Reason: Nausea And Vomiting Stop: 02/08/17 10:36 Rivaroxaban (Xarelto) 20 mg PO 1700 [facility] Stop: 02/09/17 17:01 Last Admin: 08/10/16 17:48 Dose: 20 mg - EKG Interpretation EKG results cardiology: other (Telemetry reviewed with average heart rate 99 the past 12 hours, remains A. fib, longest pause 1.9 seconds) Consult Discharge Plan - Plan Instructions: Atrial Fibrillation (DC), Asthma (DC) Additional Instructions: Follow-up appointments: If there is not an appointment listed below, please call your physician and schedule a follow-up appointment. If you have congestive heart failure and your symptoms return, make an appointment with your physician. Symptoms: If your condition changes or you experience any of the following symptoms, notify your physician immediately: Unusual or worsening pain, fever, persistent nausea and vomiting, bleeding, increase in swelling (especially in your legs), sudden weight gain, extreme dizziness, chest pain, increased drainage or redness from a wound or incision. Go to the emergency department if you experience a problem with breathing. Weights: If you have a history of swelling or shortness of breath, weigh yourself daily and notify your physician if you have a weight gain of two or more pounds in one day or 5 or more pounds in a week. If you experience any of the warning signs for stroke: Sudden numbness or weakness of the face, arm or leg; especially on one side of the body, sudden confusion, trouble speaking or understanding, sudden trouble seeing in one or both eyes, sudden trouble walking, dizziness, loss of balance or coordination, sudden sever headache with no cause; Call 911 or go to the emergency room. Stroke is a medical emergency. Some risk factors for stroke: Age, cigarette smoking, diabetes, excessive alcohol consumption, family history , high blood pressure, overweight, physical inactivity, prior stroke, heart attack, diagnosis of carotid artery stenosis or other artery disease. If you smoke, STOP: Smoking or tobacco use significantly increases your risk of heart and lung disease. Your chance of disease greatly increases if you continue to smoke. For more information, call the [place] tobacco quit line for smoking cessation QUIT-NOW ( ) Referrals: Jo Scherer CNP [Primary Care Provider] - 08/18/16 1:45 pm
[2016-08-11] MEDS: dilTIAZem HCl 60 MG TABLET PO SCH ×4 (08:41→20:45)
[2016-08-11] MEDS: Aspirin Enteric Coated 81 MG Tablet PO SCH (08:52)
[2016-08-11] MEDS: MethylPREDNISolone 40 MG/ML VIAL IVP SCH ×2 (08:53→18:18)
--- NOTE | 2016-08-11 14:50 | Electrocardiograph Report ---
[place] [address] Test Date: 2016-08-11 Pat Name: Darrell Blackmon Department: 111 Room: [facility] Gender: M Mine Superintendent: : 1955 Requested By: Cyndi Corrales Order Number: [id number] Reading MD: Riana Nichole Measurements Intervals [place] Rate: 112 P: MN: 0 QRS: 53 QRSD: 87 T: 88 QT: 318 QTc: 384 Interpretive Statements ATRIAL FIBRILLATION WITH RAPID VENTRICULAR RESPONSE ANTEROSEPTAL MYOCARDIAL INFARCTION, OF INDETERMINATE AGE Electronically Signed On 08-11-2016 14:49:04 EST by Riana Nichole
--- NOTE | 2016-08-11 15:15 | Electrocardiograph Report ---
[address] [place] [address] Test Date: 2016-08-10 Pat Name: Darrell Blackmon Department: 111 Room: [facility] Gender: M Landing Support Specialist: : 1955 Requested By: Kaleb Peralta Order Number: [id number] Reading MD: Riana Nichole Measurements Intervals [place] Rate: 97 P: [place]: 0 QRS: 50 QRSD: 102 T: 104 QT: 322 QTc: 377 Interpretive Statements ATRIAL FIBRILLATION ANTEROSEPTAL MYOCARDIAL INFARCTION, INDETERMINATE AGE Electronically Signed On 08-11-2016 15:13:02 EST by Riana Nichole
--- NOTE | 2016-08-11 15:56 | Internal Med Progress Note ---
<Chang Brantley - Last Filed: 08/11/16 15:44> Date of Encounter: 08/11/16 Time of Encounter: 15:44 - Assessment and plan (1) Atrial fibrillation with rapid ventricular response Current Visit: Yes Status: Acute Assessment and plan: CHADSVASC 2 ( HTN CAD) currently on Xarelto. rate above goal but improving. discussed with cardiology. cardizem was increased this AM and Coreg will be increased with PM meds. Etiolgy is likely secondary to pulmonary issues. TSH WNL. (2) Upper respiratory infection Current Visit: Yes Status: Acute Assessment and plan: patient is improving. continue IV steroids and bronchodialators. Plan to decrease steroids tomorrow. continue Zosyn. (3) Polycythemia Current Visit: Yes Status: Acute Assessment and plan: Patient is non smoker. He dose snore but has no daytime sleepiness. No typical symptoms of PCV such as aquagenic pruritis or erythromelalgia. However HCT as trended up since 2015. We will refer him to hematology for evaluation as there is high morbitty associate with PCV. should also have testing for ANITA as outpatient. I have discussed this with the patient and his family. (4) Asthma Current Visit: Yes Status: Acute Assessment and plan: improving. continue steroids. plan to wean down tomorrow. continue bronchodialators and antibiotics. Qualifiers: Asthma severity: mild intermittent Asthma complication type: with acute exacerbation Qualified Code(s): J45.21 - Mild intermittent asthma with (acute ) exacerbation (5) Elevation of cardiac enzymes Current Visit: Yes Status: Acute Assessment and plan: likely demand ischimia from RVR. troponins only mildly elevated and adynamic. (6) Leukocytosis Current Visit: Yes Status: Acute Assessment and plan: neutrophil predominant. likely from a combination of UTI and steroids. continue to follow. (7) Hyperglycemia Current Visit: Yes Status: Acute Assessment and plan: secondary to steroids. plan to wean tomorrow. (8) DVT prophylaxis Current Visit: Yes Status: Acute Assessment and plan: on Xarelto - Subjective Interval history: Mr. 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 He was admitted with an exacerbation of asthma. He states that it is on average well controlled. he states that he dose not typically have issues and that his rescue inhalers had . Last asthma exacerbation was over a year ago. He has been having wheezing and dyspnea for the past 4 weeks he has been treated with doxycycline and steroids without improvement. - Constitutional Vitals: Temp Pulse Resp BP Pulse Ox 97.9 F 130 18 110/83 98 08/11/16 04:00 08/11/16 08:00 08/11/16 10:39 08/11/16 08:00 08/11/16 10:39 General appearance: Present: A&O X 3, pleasant, no acute distress - Head Head exam: Present: atraumatic, normocephalic - Eye Eye exam: Present: PERRL. Absent: scleral icterus - ENT ENT exam: Present: mucous membranes moist Additional comments: xochitl color of the face. - Neck Neck exam general surgery: Present: supple, trachea midline. Absent: lymphadenopathy - Respiratory Respiratory exam: Present: CTAB. Absent: accessory muscle use, rales, rhonchi, wheezes - Cardiovascular Cardiovascular exam: Present: irregular rhythm, +S1, +S2, tachycardia. Absent: diastolic murmur, gallop, rubs, systolic murmur - GI/Abdominal GI/Abdominal exam: Present: normal bowel sounds, soft, no peritoneal signs. Absent: distended, tenderness - Extremities Exam Extremities exam: Present: warm, radial pulses palpable and symetrical. Absent : calf tenderness, cyanotic, pedal edema - Skin Skin exam: Present: dry, intact Internal Medicine: Result - Labs CBC & Chem 7: 08/11/16 05:32 08/11/16 05:32 Labs: Short CBC 08/11/16 Range/Units 05:32 WBC 19.4 H (4.3-11.1) K/mcL Hgb 18.3 H (12.9-16.9) g/dL Hct 54.0 H (37.5-50.1) % Plt Count 198 (140-400) K/mcL Neutrophils # 18.2 H (1.6-8.9) K/mcL BMP 08/11/16 05:32 Sodium 135 L Potassium 4.5 Chloride 105 Carbon Dioxide 20 BUN 25 Creatinine 0.95 Glucose 222 H Calcium 8.9 Liver Function 08/11/16 Range/Units 05:32 Total Bilirubin 1.1 (0.2-1.2) mg/dL AST 11 (5-34) Units/L ALT 36 (0-55) Units/L Alkaline Phosphatase 93 (38-126) Units/L Albumin 2.9 L (3.5-5.0) g/dL - ABG Interpretation ABG results: PT/INR, D-dimer PT 11.6 Seconds (9.4-12.1) 08/09/16 08:11 Consult Discharge Plan - Plan Instructions: Atrial Fibrillation (DC), Asthma (DC) Additional Instructions: Follow-up appointments: If there is not an appointment listed below, please call your physician and schedule a follow-up appointment. If you have congestive heart failure and your symptoms return, make an appointment with your physician. Symptoms: If your condition changes or you experience any of the following symptoms, notify your physician immediately: Unusual or worsening pain, fever, persistent nausea and vomiting, bleeding, increase in swelling (especially in your legs), sudden weight gain, extreme dizziness, chest pain, increased drainage or redness from a wound or incision. Go to the emergency department if you experience a problem with breathing. Weights: If you have a history of swelling or shortness of breath, weigh yourself daily and notify your physician if you have a weight gain of two or more pounds in one day or 5 or more pounds in a week. If you experience any of the warning signs for stroke: Sudden numbness or weakness of the face, arm or leg; especially on one side of the body, sudden confusion, trouble speaking or understanding, sudden trouble seeing in one or both eyes, sudden trouble walking, dizziness, loss of balance or coordination, sudden sever headache with no cause; Call 911 or go to the emergency room. Stroke is a medical emergency. Some risk factors for stroke: Age, cigarette smoking, diabetes, excessive alcohol consumption, family history , high blood pressure, overweight, physical inactivity, prior stroke, heart attack, diagnosis of carotid artery stenosis or other artery disease. If you smoke, STOP: Smoking or tobacco use significantly increases your risk of heart and lung disease. Your chance of disease greatly increases if you continue to smoke. For more information, call the [place] tobacco quit line for smoking cessation - QUIT-NOW ( ) Referrals: Jo Scherer CNP [Primary Care Provider] - 08/18/16 1:45 pm <Kathryn,Kaleb P - Last Filed: 08/11/16 18:04> Date of Encounter: 08/11/16 - Assessment and plan (1) Atrial fibrillation with rapid ventricular response Current Visit: Yes Status: Acute (2) Elevation of cardiac enzymes Current Visit: Yes Status: Acute (3) Asthma Current Visit: Yes Status: Acute Qualifiers: Asthma severity: mild intermittent Asthma complication type: with acute exacerbation Qualified Code(s): J45.21 - Mild intermittent asthma with (acute ) exacerbation - Constitutional Vitals: Temp Pulse Resp BP Pulse Ox 97.9 F 81 16 102/86 98 08/11/16 04:00 08/11/16 16:00 08/11/16 16:00 08/11/16 16:00 08/11/16 16:00 Internal Medicine: Result - Labs CBC & Chem 7: 08/11/16 05:32 08/11/16 05:32 Labs: Short CBC 08/11/16 Range/Units 05:32 WBC 19.4 H (4.3-11.1) K/mcL Hgb 18.3 H (12.9-16.9) g/dL Hct 54.0 H (37.5-50.1) % Plt Count 198 (140-400) K/mcL Neutrophils # 18.2 H (1.6-8.9) K/mcL BMP 08/11/16 05:32 Sodium 135 L Potassium 4.5 Chloride 105 Carbon Dioxide 20 BUN 25 Creatinine 0.95 Glucose 222 H Calcium 8.9 Liver Function 08/11/16 Range/Units 05:32 Total Bilirubin 1.1 (0.2-1.2) mg/dL AST 11 (5-34) Units/L ALT 36 (0-55) Units/L Alkaline Phosphatase 93 (38-126) Units/L Albumin 2.9 L (3.5-5.0) g/dL - ABG Interpretation ABG results: PT/INR, D-dimer PT 11.6 Seconds (9.4-12.1) 08/09/16 08:11 - Attending Attestation I examined this patient and my medical decision-making was reviewed with the VETERINARY MANAGER/PA/Advanced Practice Nurse/Resident Physician. I agree with the documented findings, disposition and treatment plan as described except to the extent set forth below.
[2016-08-11] MEDS: *HR* Rivaroxaban 10 MG TABLET PO SCH (18:19)
[2016-08-12] MEDS: MethylPREDNISolone 40 MG/ML VIAL IVP SCH ×3 (00:15→20:36)
[2016-08-12 03:59] LABS: Basophils % 0.1 %; Hematocrit 53.6 % (37.5-50.1); Hemoglobin 17.9 g/dL (12.9-16.9); Immature Granulocytes % 1.3 % (0-4); Lymphocytes # 0.7 K/mcL (0.6-4.6); Lymphocytes % 3.2 %; Mean Corpuscular HGB Conc 33.4 g/dL (31.6-35.5); Mean Corpuscular Hemoglobin 28.4 pg (28.0-33.3); Mean Corpuscular Volume 84.9 fL (83.0-100.0); Mean Platelet Volume 10.9 fL (9.4-12.4); Monocytes # 0.6 K/mcL (0.0-1.3); Monocytes % 2.5 %; Neutrophils # 20.9 K/mcL (1.6-8.9); Platelet Count 202 K/mcL (140-400); Red Blood Count 6.31 M/mcL (4.19-5.50); Red Cell Distribution Width 13.7 % (11.5-14.5); Segmented Neutrophils % 92.9 %
[2016-08-12] MEDS: Levalbuterol Neb 0.63 MG/3 ML IH SCH ×4 (04:04→21:30)
[2016-08-12 04:23] LABS: Alanine Aminotransferase 32 Units/L (0-55); Albumin 2.8 g/dL (3.5-5.0); Alkaline Phosphatase 91 Units/L (38-126); Aspartate Amino Transferase 16 Units/L (5-34); BUN/Creatinine Ratio 32 (6-26); Bilirubin,Total 0.9 mg/dL (0.2-1.2); Blood Urea Nitrogen 32 mg/dL (8-26); Calcium 8.8 mg/dL (8.6-10.8); Carbon Dioxide 20 mEq/L (19-29); Chloride 105 mEq/L (98-109); Globulin 2.9 g/dL (2.4-3.5); Glucose 267 mg/dL (70-99); Osmolality,Calculated 298 (280-300); Sodium 136 mEq/L (136-145); Total Protein 5.7 g/dL (6.0-8.3); eGFR For African Americans > 60 (> 60); eGFR For Non-African Americans > 60 (> 60)
[2016-08-12 04:29] LABS: Potassium 4.8 mEq/L (3.5-4.5)
[2016-08-12] MEDS: Piperacillin/Tazobactam 3.375 GM in D5% in Water (Mini-Bag+) 100 ML IVPB SCH ×3 (06:00→23:51)
--- NOTE | 2016-08-12 08:08 | Cardiology Progress Note ---
Date of Encounter: 08/12/16 Time of Encounter: 08:00 Assessment and Plan (1) Atrial fibrillation with rapid ventricular response Current Visit: Yes Status: Acute Per Cardiology: Previous one time occurrence paroxysmal atrial fibrillation about 2 years ago. Previous management with Cardizem CD 120 mg by mouth daily, Coreg CR 10mg PO daily, and baby aspirin. Presents with recurrent A. fib with RVR in setting of persistent cough (URI) and asthma exacerbation. Suspect also contributing factor increased albuterol usage. Remains A. fib with heart rate fluctuating 80's - 100's. SBP 100's - 110' s. Off Cardizem drip. Currently on Coreg 6.25 mg and Cardizem 90 mg by mouth every 6 hours-- will switch to Cardizem CD 360 mg by mouth daily. TSH within normal limits. Echo showed EF preserved 55-60%, no significant valvular dysfunction. Suspect difficult to rate control due to underlying resp status-- white count continues to increase-- now 22, remains afebrile, limited blood cultures negative 2. Off albuterol nebulizers and now on Xopenex. Regarding long-term anticoagulation, [id number] = 2 (HTN, Vascular). Now on Xarelto 20 mg by mouth daily by primary service. Remains on baby aspirin, now off Plavix. Discussed and reviewed with Dr. Mark Nichole, cardiology will signoff, re- consult as needed. Follow-up scheduled. Patient encouraged to monitor heart rate and blood pressure closely with increased A. fib regimen dosage. (2) Asthma Current Visit: Yes Status: Acute Per Cardiology: Suspect URI/Asthma. Pt had been being treated for cough, congestion, and wheezing for the last month. He was currently taking doxycycline and has been on it for the last 6 days with no missed doses. He was also taking a taped dose of prednisone, Qvar inhaler, and was using an albuterol inhaler about 4x/day. Now on steroids, Xopenex, and antibiotics. Management per primary service. Qualifiers: Asthma severity: mild intermittent Asthma complication type: with acute exacerbation Qualified Code(s): J45.21 - Mild intermittent asthma with (acute ) exacerbation (3) Elevation of cardiac enzymes Current Visit: Yes Status: Acute Per Cardiology: Trops 0.06 x 3 and then 0.05. Denies any CP. Hx CAD with 3 BMS 2006 at [facility]. Suspect type II demand ischemia in setting of afib RVR, ashtma/URI. Echo showed EF preserved 55-60%. Can evaluate further ischemic eval if deemed appropriate in outpatient setting once improved from acute resp issues. Discussion w patient/family: The assessment and plan as outlined above was discussed with the patient and family who expressed understanding and agreement. All questions were answered. Thank you for involving us in the care of your patient. Please call with any questions. Subjective Principal diagnosis: Afib RVR Interval history: Patient reports episodes of racing heart rate throughout the night and chest tightness. He reports cough somewhat improved. Denies any new concerns or complaints. Denies any active bleeding or blood loss. Objective Vital Signs, Last 4 Hours Temp Pulse Resp BP Pulse Ox 08/12/16 07:04 97.8 F 108 15 107/83 97 08/12/16 05:28 98.4 F 84 16 108/81 98 General: Conversant, No Apparent Distress HEENT: Atraumatic, Normocephaly Cardiac: No Murmur, Other (irregularly irregular) Lungs: Normal Breath Sounds, No Wheeze, Rales, Rhonchi Neuro: Alert and responsive, No focal deficits noted Skin: No rashes noted on visualized skin Extremities: No Edema Results 08/12/16 03:20 08/12/16 03:20 Lab Results Laboratory Tests 08/12/16 03:20 WBC 22.5 H Active Medications Acetaminophen (Tylenol) 650 mg PO Q6HR PRN PRN Reason: Mild Pain (1-3) Stop: 02/08/17 10:36 Aspirin (Aspirin Ec) 81 mg PO DAILY [facility] Stop: 02/09/17 09:01 Last Admin: 08/11/16 08:52 Dose: 81 mg Atorvastatin Calcium (Lipitor) 20 mg PO DAILY [facility] Stop: 02/09/17 09:01 Last Admin: 08/11/16 08:52 Dose: 20 mg Carvedilol (Coreg) 6.25 mg PO BIDWM [facility] Stop: 02/10/17 17:01 Last Admin: 08/11/16 18:19 Dose: 6.25 mg Diltiazem HCl (Cardizem Cd) 360 mg PO DAILY [facility] Stop: 02/11/17 09:01 Docusate Sodium (Colace) 100 mg PO BID PRN PRN Reason: Constipation Stop: 02/08/17 10:36 Guaifenesin (Robitussin Liq) 200 mg PO Q6HR PRN PRN Reason: Cough Stop: 02/09/17 13:26 Sodium Chloride (0.9 % Sodium Chloride) 1,000 mls @ 0 mls/hr IVC .Q0M TRESA PRN Reason: KVO Stop: 02/08/17 10:46 Last Admin: 08/09/16 22:48 Dose: 20 mls/hr Piperacillin Sod/Tazobactam (Sod 3.375 gm/ Dextrose) 100 mls @ 25 mls/hr IVPB Q8H TRESA PRN Reason: Protocol Stop: 02/09/17 13:01 Last Infusion: 08/12/16 05:09 Dose: Infused Levalbuterol HCl (Xopenex) 0.63 mg IH [id number] [facility] Stop: 02/08/17 11:46 Last Admin: 08/12/16 04:04 Dose: Not Given Magnesium Hydroxide (Milk Of Magnesia Conc) 10 ml PO DAILY PRN PRN Reason: Indigestion Stop: 02/08/17 10:36 Methylprednisolone (Solu-Medrol) 40 mg IVP Q8HR [facility] Stop: 02/09/17 08:01 Last Admin: 08/12/16 00:15 Dose: 40 mg Metoprolol Tartrate (Lopressor) 5 mg IVP Q6HR PRN PRN Reason: Tachyarrhythmias Stop: 02/09/17 21:48 Last Admin: 08/10/16 22:07 Dose: 5 mg Naloxone HCl (Narcan) 0.4 mg IVP Q2MIN PRN PRN Reason: Opioid Reversal Stop: 02/08/17 10:36 Ondansetron HCl (Zofran) 4 mg IVP Q8HR PRN PRN Reason: Nausea And Vomiting Stop: 02/08/17 10:36 Rivaroxaban (Xarelto) 20 mg PO 1700 [facility] Stop: 02/09/17 17:01 Last Admin: 08/11/16 18:19 Dose: 20 mg - EKG Interpretation EKG results cardiology: other (Telemetry reviewed with average heart rate 87 the past 12 hours, longest pause 2.6 seconds, remains atrial fibrillation) Consult Discharge Plan - Plan Instructions: Atrial Fibrillation (DC), Asthma (DC) Additional Instructions: Follow-up appointments: If there is not an appointment listed below, please call your physician and schedule a follow-up appointment. If you have congestive heart failure and your symptoms return, make an appointment with your physician. Symptoms: If your condition changes or you experience any of the following symptoms, notify your physician immediately: Unusual or worsening pain, fever, persistent nausea and vomiting, bleeding, increase in swelling (especially in your legs), sudden weight gain, extreme dizziness, chest pain, increased drainage or redness from a wound or incision. Go to the emergency department if you experience a problem with breathing. Weights: If you have a history of swelling or shortness of breath, weigh yourself daily and notify your physician if you have a weight gain of two or more pounds in one day or 5 or more pounds in a week. If you experience any of the warning signs for stroke: Sudden numbness or weakness of the face, arm or leg; especially on one side of the body, sudden confusion, trouble speaking or understanding, sudden trouble seeing in one or both eyes, sudden trouble walking, dizziness, loss of balance or coordination, sudden sever headache with no cause; Call 911 or go to the emergency room. Stroke is a medical emergency. Some risk factors for stroke: Age, cigarette smoking, diabetes, excessive alcohol consumption, family history , high blood pressure, overweight, physical inactivity, prior stroke, heart attack, diagnosis of carotid artery stenosis or other artery disease. If you smoke, STOP: Smoking or tobacco use significantly increases your risk of heart and lung disease. Your chance of disease greatly increases if you continue to smoke. For more information, call the [place] tobacco quit line for smoking cessation 0 QUIT-NOW ( ) Referrals: Jo Scherer CNP [Primary Care Provider] - 08/18/16 1:45 pm
[2016-08-12] MEDS: Diltiazem CD (24hr) 180 MG CAPSULE PO SCH (09:37)
[2016-08-12] MEDS: Aspirin Enteric Coated 81 MG Tablet PO SCH (09:38)
--- NOTE | 2016-08-12 10:20 | Internal Med Progress Note ---
<Chang Brantley - Last Filed: 08/12/16 13:11> Date of Encounter: 08/12/16 Time of Encounter: 08:55 - Assessment and plan (1) Atrial fibrillation with rapid ventricular response Current Visit: Yes Status: Acute Assessment and plan: CHADSVASC 2 ( HTN CAD) currently on Xarelto. rate under better control. appreciate input from cardiology. Etiolgy is likely secondary to pulmonary issues. TSH WNL. (2) Upper respiratory infection Current Visit: Yes Status: Acute Assessment and plan: patient is improving. continue IV steroids and bronchodialators. wean steroids continue Zosyn. WBC trending up. However asymptomatic and afebrile. Likely from steroids Qualifiers: Qualified Code(s): J06.9 - Acute upper respiratory infection, unspecified (3) Polycythemia Current Visit: Yes Status: Acute Assessment and plan: Patient is non smoker. He dose snore but has no daytime sleepiness. No typical symptoms of PCV such as aquagenic pruritis or erythromelalgia. However HCT as trended up since 2015. We will refer him to hematology for evaluation as there is high morbitty associate with PCV. should also have testing for ANITA as outpatient. I have discussed this with the patient and his family. (4) Asthma Current Visit: Yes Status: Acute Assessment and plan: improving. continue steroids. plan to wean down tomorrow. continue bronchodialators and antibiotics. Qualifiers: Asthma severity: mild intermittent Asthma complication type: with acute exacerbation Qualified Code(s): J45.21 - Mild intermittent asthma with (acute ) exacerbation (5) Elevation of cardiac enzymes Current Visit: Yes Status: Acute Assessment and plan: likely demand ischimia from RVR. troponins only mildly elevated and adynamic. (6) Leukocytosis Current Visit: Yes Status: Acute Assessment and plan: neutrophil predominant. mild trend up likely from a combination of UTI and steroids. continue to follow. (7) Hyperglycemia Current Visit: Yes Status: Acute Assessment and plan: secondary to steroids. should improve with weaning steroids. . (8) DVT prophylaxis Current Visit: Yes Status: Acute Assessment and plan: on Xarelto - Subjective Interval history: No major events overnight. This morning Mr. Blackmon denies chest pain, increased dyspnea or cough. he denies feeling subjective fever or chills. He states his breathing has improved. He did have one episode of loose bowel movement this AM. - Constitutional Vitals: Temp Pulse Resp BP Pulse Ox 97.8 F 108 15 107/83 97 08/12/16 07:04 08/12/16 07:04 08/12/16 07:04 08/12/16 07:04 08/12/16 09:52 General appearance: Present: A&O X 3, pleasant, no acute distress - Head Head exam: Present: atraumatic, normocephalic - Eye Eye exam: Present: PERRL, conjuntiva pink, sclera anicteric Pupils: Present: PERRL - Neck Neck exam general surgery: Present: supple, trachea midline. Absent: lymphadenopathy - Respiratory Respiratory exam: Present: CTAB. Absent: accessory muscle use, rales, rhonchi, wheezes - Cardiovascular Cardiovascular exam: Present: irregular rhythm, +S1, +S2. Absent: diastolic murmur, gallop, rubs, systolic murmur - GI/Abdominal GI/Abdominal exam: Present: normal bowel sounds, soft, no peritoneal signs. Absent: distended, tenderness - Extremities Exam Extremities exam: Present: warm, radial pulses palpable and symetrical. Absent : calf tenderness, cyanotic, pedal edema - Skin Skin exam: Present: dry, intact Internal Medicine: Result - Labs CBC & Chem 7: 08/12/16 03:20 08/12/16 03:20 Labs: Short CBC 08/12/16 Range/Units 03:20 WBC 22.5 H (4.3-11.1) K/mcL Hgb 17.9 H (12.9-16.9) g/dL Hct 53.6 H (37.5-50.1) % Plt Count 202 (140-400) K/mcL Neutrophils # 20.9 H (1.6-8.9) K/mcL BMP 08/12/16 03:20 Sodium 136 Potassium 4.8 H Chloride 105 Carbon Dioxide 20 BUN 32 H Creatinine 0.99 Glucose 267 H Calcium 8.8 Liver Function 08/12/16 Range/Units 03:20 Total Bilirubin 0.9 (0.2-1.2) mg/dL AST 16 (5-34) Units/L ALT 32 (0-55) Units/L Alkaline Phosphatase 91 (38-126) Units/L Albumin 2.8 L (3.5-5.0) g/dL - ABG Interpretation ABG results: PT/INR, D-dimer PT 11.6 Seconds (9.4-12.1) 08/09/16 08:11 Consult Discharge Plan - Plan Instructions: Atrial Fibrillation (DC), Asthma (DC) Additional Instructions: Follow-up appointments: If there is not an appointment listed below, please call your physician and schedule a follow-up appointment. If you have congestive heart failure and your symptoms return, make an appointment with your physician. Symptoms: If your condition changes or you experience any of the following symptoms, notify your physician immediately: Unusual or worsening pain, fever, persistent nausea and vomiting, bleeding, increase in swelling (especially in your legs), sudden weight gain, extreme dizziness, chest pain, increased drainage or redness from a wound or incision. Go to the emergency department if you experience a problem with breathing. Weights: If you have a history of swelling or shortness of breath, weigh yourself daily and notify your physician if you have a weight gain of two or more pounds in one day or 5 or more pounds in a week. If you experience any of the warning signs for stroke: Sudden numbness or weakness of the face, arm or leg; especially on one side of the body, sudden confusion, trouble speaking or understanding, sudden trouble seeing in one or both eyes, sudden trouble walking, dizziness, loss of balance or coordination, sudden sever headache with no cause; Call 911 or go to the emergency room. Stroke is a medical emergency. Some risk factors for stroke: Age, cigarette smoking, diabetes, excessive alcohol consumption, family history , high blood pressure, overweight, physical inactivity, prior stroke, heart attack, diagnosis of carotid artery stenosis or other artery disease. If you smoke, STOP: Smoking or tobacco use significantly increases your risk of heart and lung disease. Your chance of disease greatly increases if you continue to smoke. For more information, call the [place] tobacco quit line for smoking cessation 8-661- QUIT-NOW ( ) Referrals: Jo Scherer CNP [Primary Care Provider] - 08/18/16 1:45 pm <Kaleb Peralta - Last Filed: 08/12/16 14:38> Date of Encounter: 08/12/16 - Assessment and plan (1) Atrial fibrillation with rapid ventricular response Current Visit: Yes Status: Acute (2) Elevation of cardiac enzymes Current Visit: Yes Status: Acute (3) Asthma Current Visit: Yes Status: Acute Qualifiers: Asthma severity: mild intermittent Asthma complication type: with acute exacerbation Qualified Code(s): J45.21 - Mild intermittent asthma with (acute ) exacerbation - Constitutional Vitals: Temp Pulse Resp BP Pulse Ox 97.8 F 108 18 107/83 98 08/12/16 07:04 08/12/16 07:04 08/12/16 10:45 08/12/16 07:04 08/12/16 10:45 Internal Medicine: Result - Labs CBC & Chem 7: 08/12/16 03:20 08/12/16 03:20 Labs: Short CBC 08/12/16 Range/Units 03:20 WBC 22.5 H (4.3-11.1) K/mcL Hgb 17.9 H (12.9-16.9) g/dL Hct 53.6 H (37.5-50.1) % Plt Count 202 (140-400) K/mcL Neutrophils # 20.9 H (1.6-8.9) K/mcL BMP 08/12/16 03:20 Sodium 136 Potassium 4.8 H Chloride 105 Carbon Dioxide 20 BUN 32 H Creatinine 0.99 Glucose 267 H Calcium 8.8 Liver Function 08/12/16 Range/Units 03:20 Total Bilirubin 0.9 (0.2-1.2) mg/dL AST 16 (5-34) Units/L ALT 32 (0-55) Units/L Alkaline Phosphatase 91 (38-126) Units/L Albumin 2.8 L (3.5-5.0) g/dL - ABG Interpretation ABG results: PT/INR, D-dimer PT 11.6 Seconds (9.4-12.1) 08/09/16 08:11 - Attending Attestation I examined this patient and my medical decision-making was reviewed with the JOY LOADING MACHINE OPERATOR/PA/Advanced Practice Nurse/Resident Physician. I agree with the documented findings, disposition and treatment plan as described except to the extent set forth below. possible home tomorrow
[2016-08-12] MEDS: Lactobacillus 1 EACH CAP.SPRINK PO SCH ×2 (12:59→20:36)
[2016-08-12] MEDS: *HR* Rivaroxaban 10 MG TABLET PO SCH (18:03)
[2016-08-13 01:30] LABS: Adenovirus F 40/41 PCR Not detected (Not detect); Astrovirus PCR Not detected (Not detect); C.difficile Toxin A/B by PCR Not detected (Not detect); Campylobacter by PCR ***DETECTED*** (Not detect); Cryptosporidium by PCR Not detected (Not detect); Cyclospora cayetanensis PCR Not detected (Not detect); Entamoeba histolytica PCR Not detected (Not detect); Enteroaggregative E.coli(EAEC) Not detected (Not detect); Enteropathogenic E.coli(EPEC) Not detected (Not detect); Enterotoxigenic E.coli (ETEC) Not detected (Not detect); Giardia lamblia PCR Not detected (Not detect); Norovirus GI/GII PCR Not detected (Not detect); Plesiomonas shigelloides PCR Not detected (Not detect); Rotavirus A PCR Not detected (Not detect); Salmonella PCR Not detected (Not detect); Sapovirus PCR Not detected (Not detect); Shig/EnteroinvasiveE coli EIEC Not detected (Not detect); Shigalike tox-prod E coli STEC Not detected (Not detect); Vibrio PCR Not detected (Not detect); Vibrio cholerae PCR Not detected (Not detect); Yersinia enterocolitica PCR Not detected (Not detect)
[2016-08-13] MEDS: Levalbuterol Neb 0.63 MG/3 ML IH SCH ×2 (04:00→11:13)
[2016-08-13 05:54] LABS: Basophils % 0.1 %; Hematocrit 51.5 % (37.5-50.1); Hemoglobin 17.4 g/dL (12.9-16.9); Immature Granulocytes % 1.1 % (0-4); Lymphocytes # 0.5 K/mcL (0.6-4.6); Lymphocytes % 2.7 %; Mean Corpuscular HGB Conc 33.8 g/dL (31.6-35.5); Mean Corpuscular Hemoglobin 28.4 pg (28.0-33.3); Mean Corpuscular Volume 84.2 fL (83.0-100.0); Mean Platelet Volume 10.8 fL (9.4-12.4); Monocytes # 0.4 K/mcL (0.0-1.3); Monocytes % 2.2 %; Neutrophils # 16.9 K/mcL (1.6-8.9); Platelet Count 181 K/mcL (140-400); Red Blood Count 6.12 M/mcL (4.19-5.50); Red Cell Distribution Width 13.8 % (11.5-14.5); Segmented Neutrophils % 93.9 %
[2016-08-13 06:14] LABS: BUN/Creatinine Ratio 32 (6-26); Blood Urea Nitrogen 31 mg/dL (8-26); Calcium 8.5 mg/dL (8.6-10.8); Carbon Dioxide 22 mEq/L (19-29); Chloride 104 mEq/L (98-109); Glucose 207 mg/dL (70-99); Osmolality,Calculated 295 (280-300); Potassium 4.3 mEq/L (3.5-4.5); Sodium 136 mEq/L (136-145); eGFR For African Americans > 60 (> 60); eGFR For Non-African Americans > 60 (> 60)
[2016-08-13] MEDS: Piperacillin/Tazobactam 3.375 GM in D5% in Water (Mini-Bag+) 100 ML IVPB SCH (06:19)
[2016-08-13 07:41] VITALS: BP 112/87
--- NOTE | 2016-08-13 09:12 | Discharge Summary ---
<Chang Brantley Eddeshawn - Last Filed: 08/13/16 09:01> Date of Encounter: 08/13/16 Time of Encounter: 09:01 - Discharge Diagnosis (1) Atrial fibrillation with rapid ventricular response Priority: Primary Status: Acute (2) Upper respiratory infection Priority: Secondary Status: Acute Qualifiers: Qualified Code(s): J06.9 - Acute upper respiratory infection, unspecified (3) Polycythemia Priority: Secondary Status: Acute (4) Asthma Priority: Secondary Status: Acute Qualifiers: Asthma severity: mild intermittent Asthma complication type: with acute exacerbation Qualified Code(s): J45.21 - Mild intermittent asthma with (acute ) exacerbation (5) Elevation of cardiac enzymes Priority: Secondary Status: Acute (6) Leukocytosis Priority: Secondary Status: Acute (7) Hyperglycemia Priority: Secondary Status: Acute (8) DVT prophylaxis Priority: Secondary Status: Acute - Discharge Medications Prescriptions: GuaiFENesin Liq [Robitussin Liq] 200 mg PO Q6HR PRN 14 Days PRN Reason: Cough Carvedilol [Coreg] 6.25 mg PO BIDWM #60 tablet Diltiazem CD (24hr) [Cardizem CD] 360 mg PO DAILY 30 Days Lactobacillus [Culturelle] 1 each PO BID #30 cap.sprink Levalbuterol [Xopenex INH] 15 gm IH Q6H PRN 30 Days PRN Reason: Wheeze Levofloxacin 750 mg PO DAILY #6 tablet PredniSONE 10 mg PO DAILY #23 tablet Rivaroxaban [Xarelto] 20 mg PO 1700 #30 tablet Home Medications: Aspirin [Lo-Dose Aspirin EC] 81 mg PO DAILY 08/09/16 [History] Atorvastatin Calcium [Lipitor] 20 mg PO DAILY 08/09/16 [History] Beclomethasone Diprop 80mcg [QVAR 80 mcg] 1 puff IH BID 08/09/16 [History] Clopidogrel [Plavix] 75 mg PO DAILY 08/09/16 [History] Fish Oil/Borage/Flax/Om3,6,9#1 [[place] 3-6-9 1,200 mg Softgel] 1,200 mg PO DAILY 08/09/16 [History] Carvedilol [Coreg] 6.25 mg PO BIDWM #60 tablet 08/13/16 [Rx] Diltiazem CD (24hr) [Cardizem CD] 360 mg PO DAILY 30 Days 08/13/16 [Rx] GuaiFENesin Liq [Robitussin Liq] 200 mg PO Q6HR PRN 14 Days 08/13/16 [Rx] Lactobacillus [Culturelle] 1 each PO BID #30 cap.sprink 08/13/16 [Rx] Levalbuterol [Xopenex INH] 15 gm IH Q6H PRN 30 Days 08/13/16 [Rx] Levofloxacin 750 mg PO DAILY #6 tablet 08/13/16 [Rx] PredniSONE 10 mg PO DAILY #23 tablet 08/13/16 [Rx] Rivaroxaban [Xarelto] 20 mg PO 1700 #30 tablet 08/13/16 [Rx] Allergies/Adverse Reactions: Allergies No Known Allergies Allergy (Verified 08/09/16 07:10) Procedures/tests Complete & Pending: Procedures Performed prior 72 hours Category Date Time Status ECG 12 lead ECG [ECG] Routine Y 08/10/16 21:58 Completed Date of admission: 08/09/16 15:01 Primary care physician: Jo Scherer CNP Consults: 08/10/16 07:19 Consult to Cardiology [CONS] Routine Comment: Consulting Provider: Cardiology Kathleen Reason for Consult: Afib RVR, New anticoag, Patient request, Coworker Call Completed: No Discharging clinician: Chang Brantley - Patient Status Disposition: Home, Self-Care Condition: Good Functional capacity at discharge: independent ambulation Overall status at discharge: patient is progressing back to baseline - Discharge Instructions Instructions: Atrial Fibrillation (DC), Asthma (DC) Follow Up With: Jo Scherer CNP [Primary Care Provider] - 08/18/16 1:45 pm Additional Instructions: Follow-up appointments: If there is not an appointment listed below, please call your physician and schedule a follow-up appointment. If you have congestive heart failure and your symptoms return, make an appointment with your physician. Symptoms: If your condition changes or you experience any of the following symptoms, notify your physician immediately: Unusual or worsening pain, fever, persistent nausea and vomiting, bleeding, increase in swelling (especially in your legs), sudden weight gain, extreme dizziness, chest pain, increased drainage or redness from a wound or incision. Go to the emergency department if you experience a problem with breathing. Weights: If you have a history of swelling or shortness of breath, weigh yourself daily and notify your physician if you have a weight gain of two or more pounds in one day or 5 or more pounds in a week. If you experience any of the warning signs for stroke: Sudden numbness or weakness of the face, arm or leg; especially on one side of the body, sudden confusion, trouble speaking or understanding, sudden trouble seeing in one or both eyes, sudden trouble walking, dizziness, loss of balance or coordination, sudden sever headache with no cause; Call 911 or go to the emergency room. Stroke is a medical emergency. Some risk factors for stroke: Age, cigarette smoking, diabetes, excessive alcohol consumption, family history , high blood pressure, overweight, physical inactivity, prior stroke, heart attack, diagnosis of carotid artery stenosis or other artery disease. If you smoke, STOP: Smoking or tobacco use significantly increases your risk of heart and lung disease. Your chance of disease greatly increases if you continue to smoke. For more information, call the [employer] quit line for smoking cessation 2131 QUIT-NOW ( ) - Diet and Activity Activity: increase activity as tolerated Diet: advance to your usual diet Hospital course: Mr. Blackmon is an exceptionally pleasant 60 year old male who was admitted for Atrial Fibrillatio with RVR. He had also had an URI with possible CAP and had failed treatment as an outpatient. His medication was adjusted by cardiology and he is well controlled now on Coreg and cardizem. His ChadsVASC score was 2 so he was initiated on Xarelto. During his stay he also developed diarrhea which tested positive for Campylobacter. He had had some chicken strips and chicken noodle soup the day before that was likely the cource. He has improved. He is on room air and has a normal effort of breathing. His bowel movments have slowed and are becoming formed. We will discharge him today to complete a course of Levofloxacin. This should cover possible CAP as well as the campylobacter. We are also setting up an appointment as his HCT has been significant and there is concern for possible PCV. The patient is medically stable for discharge. He has voiced back agreement and understanding of the discharge plan. - Time Spent with Patient Total time spent providing and/or coordinating discharge services: Less than 30 minutes - Constitutional Vitals: Temp Pulse Resp BP Pulse Ox 97.8 F 90 16 112/87 96 08/13/16 07:40 08/13/16 07:40 08/13/16 07:40 08/13/16 07:40 08/13/16 07:40 General appearance: Present: A&O X 3, pleasant, no acute distress <Kaleb Peralta P - Last Filed: 08/13/16 12:58> Date of Encounter: 08/13/16 - Discharge Diagnosis (1) Atrial fibrillation with rapid ventricular response Status: Acute (2) Elevation of cardiac enzymes Status: Acute (3) Asthma Status: Acute Qualifiers: Asthma severity: mild intermittent Asthma complication type: with acute exacerbation Qualified Code(s): J45.21 - Mild intermittent asthma with (acute ) exacerbation Procedures/tests Complete & Pending: Procedures Performed prior 72 hours Category Date Time Status ECG 12 lead ECG [ECG] Routine Y 08/10/16 21:58 Completed Date of admission: 08/09/16 15:01 Primary care physician: Jo Scherer CNP Consults: 08/10/16 07:19 Consult to Cardiology [CONS] Routine Comment: Consulting Provider: Cardiology Kathleen Reason for Consult: Afib RVR, New anticoag, Patient request, Coworker Call Completed: No Hospital course: Mr. Blackmon is a 60 year old male - Time Spent with Patient Total time spent providing and/or coordinating discharge services: - Constitutional Vitals: Temp Pulse Resp BP Pulse Ox 97.8 F 90 16 112/87 96 08/13/16 07:40 08/13/16 07:40 08/13/16 07:40 08/13/16 07:40 08/13/16 08:00 - Attending Attestation I examined this patient and my medical decision-making was reviewed with the ER RN/PA/Advanced Practice Nurse/Resident Physician. I agree with the documented findings, disposition and treatment plan as described except to the extent set forth below. Home today follow up with cardio Possible cryo ablation.
[2016-08-13] MEDS: Diltiazem CD (24hr) 180 MG CAPSULE PO SCH (09:24)
[2016-08-13] MEDS: Lactobacillus 1 EACH CAP.SPRINK PO SCH (09:24)
[2016-08-13] MEDS: MethylPREDNISolone 40 MG/ML VIAL IVP SCH (09:24)
[2016-08-13] MEDS: Aspirin Enteric Coated 81 MG Tablet PO SCH (09:24)
== END 2016-08-13 13:12 | disposition home or self-care (01) | DRG 308 ==
LOC: 2NENU 07:07 → EMEROO 07:07 → 2NENU 11:03
PROVIDERS: ADMIT Internal Medicine; ATTEND Internal Medicine

== ENCOUNTER 2022-04-04 02:17 | Inpatient (IN) ==
[2022-04-04 04:50] LABS: Basophils # 0.1 K/mcL (0.0-0.2); Basophils % 0.8 %; Eosinophils # 0.2 K/mcL (0.0-0.6); Eosinophils % 1.6 %; Hematocrit 49.4 % (37.5-50.1); Hemoglobin 15.8 g/dL (12.9-16.9); Immature Granulocytes % 0.3 % (0-4); Lymphocytes # 1.5 K/mcL (0.6-4.6); Lymphocytes % 14.9 %; Mean Corpuscular Hemoglobin 25.8 pg (28.0-33.3); Mean Corpuscular Volume 80.6 fL (83.0-100.0); Mean Platelet Volume 11.6 fL (9.4-12.4); Monocytes # 0.9 K/mcL (0.0-1.3); Monocytes % 9.4 %; Neutrophils # 7.1 K/mcL (1.6-8.9); Platelet Count 226 K/mcL (140-400); Red Blood Count 6.13 M/mcL (4.19-5.50); Red Cell Distribution Width 13.6 % (11.5-14.5); White Blood Count 9.8 K/mcL (4.3-11.1)
[2022-04-04 04:57] LABS: INR 1.2; Prothrombin Time 13.3 Seconds (9.4-12.1)
[2022-04-04 05:00] LABS: Activated Partial Thrombo Time 35.9 Seconds (26.0-36.0)
[2022-04-04 05:11] LABS: BUN/Creatinine Ratio 16 (6-26); Blood Urea Nitrogen 15 mg/dL (8-23); Calcium 8.8 mg/dL (8.6-10.3); Carbon Dioxide 23 mEq/L (23-29); Chloride 104 mEq/L (98-107); Glucose 141 mg/dL (70-105); Osmolality,Calculated 285 (280-300); Potassium 4.1 mEq/L (3.5-5.1); Sodium 136 mEq/L (136-145)
[2022-04-04 05:12] LABS: Troponin I < 0.03 ng/mL (< 0.04)
[2022-04-04] MEDS ORDERED: Aspirin 325 MG TABLET PO ONE (07:23)
[2022-04-04] MEDS ORDERED: Naloxone 0.4 MG/ML INJ IVP PRN (07:44)
[2022-04-04] MEDS ORDERED: Melatonin 3 MG TABLET PO PRN (07:44)
[2022-04-04] MEDS ORDERED: Ondansetron 4 MG/2 ML VIAL IVP PRN (07:44)
[2022-04-04] MEDS ORDERED: Regadenoson 0.4 MG/5 ML SYRINGE IVP ONE (08:02)
[2022-04-04] MEDS: Nitroglycerin 0.4 MG TAB.SUBL SL PRN ×3 (13:29→13:43)
[2022-04-04] MEDS ORDERED: *HR* Heparin 5,000 UNIT/ML VIAL IVP ONE ×2 (13:56→14:07)
[2022-04-04] MEDS ORDERED: *HR* Heparin 5,000 UNIT/ML VIAL IVP PRN ×4 (13:56→14:07)
[2022-04-04] MEDS ORDERED: Heparin 25,000UNIT/250ML 1/2NS 25,000 UNIT/250 ML IV.SOLN IVC SCH (14:00)
[2022-04-04] MEDS ORDERED: 0.9 % Sodium Chloride 2,000 ML ONE (14:31)
[2022-04-04] MEDS ORDERED: *HR* FentaNYL (PF) 100 MCG/2 ML VIAL ONE (14:31)
[2022-04-04] MEDS ORDERED: *HR* Midazolam HCl 2 MG/2 ML VIAL ONE (14:31)
[2022-04-04] MEDS ORDERED: Iopamidol - 370 200 ML INFUS..BTL ONE (14:32)
[2022-04-04] MEDS ORDERED: *HR* Heparin 10,000 UNIT/10 ML VIAL ONE (14:32)
[2022-04-04] MEDS ORDERED: Heparin 1,000 UNITS/500 mL 500 ML ONE (14:32)
[2022-04-04] MEDS ORDERED: Nitroglycerin 1,000 MCG/5 ML VIAL IV ONE (14:32)
[2022-04-04] MEDS: Heparin 25,000UNIT/250ML 1/2NS 25,000 UNIT/250 ML IV.SOLN IVC SCH (14:39)
[2022-04-04] MEDS ORDERED: Ondansetron 4 MG/2 ML VIAL ONE (15:30)
[2022-04-04 17:44] LABS: Hematocrit 50.3 % (37.5-50.1); Hemoglobin 16.3 g/dL (12.9-16.9); Mean Corpuscular HGB Conc 32.4 g/dL (31.6-35.5); Mean Corpuscular Hemoglobin 26.2 pg (28.0-33.3); Mean Platelet Volume 11.4 fL (9.4-12.4); Platelet Count 256 K/mcL (140-400); Red Blood Count 6.21 M/mcL (4.19-5.50); Red Cell Distribution Width 13.7 % (11.5-14.5); White Blood Count 11.9 K/mcL (4.3-11.1)
[2022-04-04 17:58] LABS: INR 1.2; Prothrombin Time 13.3 Seconds (9.4-12.1)
[2022-04-04 18:16] LABS: Activated Partial Thrombo Time 220.4 Seconds (26.0-36.0)
[2022-04-04] MEDS: Acetaminophen 325 MG TABLET PO PRN (18:27)
[2022-04-04] MEDS ORDERED: Amiodarone Premix 360 MG/200 ML BAG IVC ONE (18:41)
[2022-04-04] MEDS ORDERED: Amiodarone Premix 150 MG/100 ML BAG IVPB ONE (18:41)
[2022-04-04 20:00] LABS: VBG Ionized Calcium 1.08 mmol/L (1.15-1.35)
[2022-04-04 20:00] LABS: Calcium 8.6 mg/dL (8.6-10.3); Potassium 5.1 mEq/L (3.5-5.1)
[2022-04-04 20:01] LABS: Calcium 8.5 mg/dL (8.6-10.3); Phosphorous 2.6 mg/dL (2.7-4.5); Potassium 5.1 mEq/L (3.5-5.1)
[2022-04-04 20:16] LABS: Thyroid Stimulating Hormone 1.173 mcIU/mL (0.340-5.600)
[2022-04-05] MEDS: Amiodarone Premix 360 MG/200 ML BAG IVC SCH ×2 (01:30→14:08)
[2022-04-05 02:35] LABS: Hematocrit 48.5 % (37.5-50.1); Hemoglobin 15.5 g/dL (12.9-16.9); Mean Corpuscular Hemoglobin 25.9 pg (28.0-33.3); Mean Platelet Volume 11.7 fL (9.4-12.4); Platelet Count 249 K/mcL (140-400); Red Blood Count 5.99 M/mcL (4.19-5.50); Red Cell Distribution Width 13.8 % (11.5-14.5); White Blood Count 11.3 K/mcL (4.3-11.1)
[2022-04-05 02:41] LABS: Calcium 8.3 mg/dL (8.6-10.3); Phosphorous 3.5 mg/dL (2.7-4.5)
[2022-04-05 02:42] LABS: BUN/Creatinine Ratio 12 (6-26); Blood Urea Nitrogen 12 mg/dL (8-23)
[2022-04-05] MEDS: Acetaminophen 325 MG TABLET PO PRN (04:46)
[2022-04-05] MEDS ORDERED: Morphine Sulfate 2 MG/ML SYRINGE IVP PRN (05:02)
[2022-04-05] MEDS ORDERED: Furosemide 20 MG/2 ML VIAL IVP ONE (05:02)
[2022-04-05] MEDS: Heparin 25,000UNIT/250ML 1/2NS 25,000 UNIT/250 ML IV.SOLN IVC SCH ×2 (08:57→15:20)
[2022-04-05] MEDS ORDERED: Aspirin 81 MG TAB.CHEW PO SCH (09:00)
[2022-04-05] MEDS ORDERED: Levalbuterol Neb 1.25 MG/3 ML IH PRN (11:33)
[2022-04-05 15:11] VITALS: TEMP 99
[2022-04-05 17:09] VITALS: BP 116/74; PULSE 56; O2SAT 94
== END 2022-04-05 17:45 | disposition short-term general hospital (02) | DRG 251 ==
LOC: 3BNU 02:17 → EMEROOARM 02:17 → 3BNU 08:30 → ICNU 16:45
PROVIDERS: ADMIT Internal Medicine; ATTEND Internal Medicine